=== PATIENT | male | born 1970 | race Caucasian/White ===

== ENCOUNTER 2023-12-06 00:57 | Outpatient (CLI) | payer BC, SELFPAY ==
--- OUTSIDE RECORDS SUMMARY | 2023-12-06 00:59 | XMS_ITS | Encounter Summary ---
[place] [address] Care Team Providers Care Producer Name Role Phone Mai Niec MD Primary Care Provider +1- [phone] Encounter Details Date Type Department Care Team ([facility] st Contact Info) Description 08/28/2012 9:00 AM EDT Office Visit [address] [phone] Mai Nice MD [address] [place] [address] Social History Tobacco Use Types Packs/Day Years Used Date Smoking Tobacco: Never Assessed Sex and Gender Information Value Date Recorded Sex Assigned at Not on file Gender Identity Not on file Sexual Orientation Not on file documented as of this encounter Plan of Treatment Not on file documented as of this encounter Visit Diagnoses Not on filedocumented in this encounter Care Teams Producer Relationship Specialty Start Date End Date Mai Nice MD [address] [place] [address] PCP - General 04/11/10 10/22/13 documented as of this encounter
--- OUTSIDE RECORDS SUMMARY | 2023-12-06 00:59 | XMS_ITS | Encounter Summary ---
[place] [address] Care Team Providers Care Operator Command Support Systems Name Role Phone Mai Nice MD Primary Care Provider +1- [phone] Encounter Details Date Type Department Care Team ([facility] st Contact Info) Description 08/06/2011 7:30 AM EDT Office Visit [address] [address] Mai Nice MD [address] [place] [address] Social History Tobacco Use Types Packs/Day Years Used Date Smoking Tobacco: Never Assessed Sex and Gender Information Value Date Recorded Sex Assigned at Not on file Gender Identity Not on file Sexual Orientation Not on file documented as of this encounter Plan of Treatment Not on file documented as of this encounter Visit Diagnoses Not on filedocumented in this encounter Care Teams Operator Command Support Systems Relationship Specialty Start Date End Date Mai Nice MD [address] [place] [address] PCP - General 04/11/10 10/22/13 documented as of this encounter
--- OUTSIDE RECORDS SUMMARY | 2023-12-06 00:59 | XMS_ITS | Encounter Summary ---
[place] [address] Care Team Providers Care Cleat Layer Name Role Phone Geovanna Mendoza MD Primary Care Provider +1- [phone] Reason for Referral * Consultation (Routine) - Closed Specialty Diagnoses / Procedures Referred By Alex hugo Referred To Contact Diagnoses Geovanna Espitia MD [address] [place] [address] [facility] [address] [place] [address] Referral ID Status Reason Start Date Expiration Date Visits Requested Visits Authorized [id number] Closed Continuity of Care HIM information not needed 5 08/28/2015 1 1 * Consultation (Routine) - Closed Specialty Diagnoses / Procedures Referred By Alex hugo Referred To Contact Nutrition Diagnoses Geovanna Espitia MD [address] [place] [address] [address] Referral ID Status Reason Start Date Expiration Date V isits Requested Visits Authorized [id number] Closed Continuity of Care 02/22/2015 02/22/2016 1 1 Reason for Visit * Reason Onset Date Comments Results 02/18/2015 Encounter Details Date Type Department Care Team (Late st Contact Info) Description 02/18/2015 Refill Primary Care at [facility] [address] [place] [address] Geovanna Mendoza MD [address] [place] [address] Acquired hypothyroidism; Erectile dysfunction, unspecified erectile dysfunction type; Hypothyroidism, unspecified hypothyroidism type; Prediabetes Social History Tobacco Use Types Packs/Day Years Used Date Smoking Tobacco: Never Assessed Sex and Gender Information Value Date Recorded Sex Assigned at Not on file Gender Identity Not on file Sexual Orientation Not on file documented as of this encounter Miscellaneous Notes * Telephone Encounter - Miryam Shannon LPN - 03/01/2015 11:20 AM EDT Spoke with pt. Pt is aware of lab result (a1c) and recommendation below. Pt agrees to referral. Referral entered. 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 Also notify pt that his recent A1c is 5.6 - suggestive of prediabetes.Recommend Document Clerk consult. * Telephone Encounter - Miranda Yeager CMA - 02/21/2015 3:09 PM EDT Called pt. Let him know of the levothyroxine change. Pt agrees with plan Updated medlist. Please send new rx * Telephone Encounter - Geovanna Warren MD - 02/21/2015 9:01 AM EDT Please call pt and notify his recent TSH was elevated. I have increased dose of Synthroid from 25 mcg to 50 mcg. Please also request pt to be compliant with medication. If he missed dose, to resume as soon as possible. Repeat TSH in 3 mths. * Telephone Encounter - Miranda Yeager CMA - 02/18/2015 8:58 AM EDT Last Prescription Fill Date: Number Dispensed and Refills: Last Related Office Visit: 11/08/14 Next Scheduled Appointment:none Lab Results Component Value Date HGB 16.3 11/15/2014 HCT 46.1 11/15/2014 CHLPL 164 11/15/2014 TRIG 61 11/15/2014 HDL 58 11/15/2014 LDLCHOL 94 11/15/2014 ALT 30 11/15/2014 AST 22 11/15/2014 NA 142 11/15/2014 K 4.2 11/15/2014 CL 104 11/15/2014 CREATININE 0.93 11/15/2014 TSH 5.98* 11/15/2014 HA1C 5.6* 08/28/2012 * Telephone Encounter - Miranda Yeager CMA - 02/18/2015 8:53 AM EDT ----- Message from Chasity Davis sent at 02/17/2015 4:59 PM EDT ----- Rx renewal PCP: GEOVANNA WARREN MD (General) Best number to be reached at: [phone] Medication and dose (copy and paste from eD-H): Levothyroxine, Viagra 90 day supply please Send to pharmacy (name and number): [facility] Patient was informed of the 48 - 72 hour policy time for Rx requests documented in this encounter Plan of Treatment Scheduled Referrals Name Type Priority Associated Diagnoses Orde r Schedule Referral to Nutrition Services Outpatient Referral Routine Prediabetes Ordered: 02/22/2015 Referral to Nutrition Services Outpatient Referral Routine Prediabetes Ordered: 03/01/2015 documented as of this encounter Visit Diagnoses Diagnosis Acquired hypothyroidism Unspecified hypothyroidism Erectile dysfunction, unspecified erectile dysfunction type Hypothyroidism, unspecified hypothyroidism type Prediabetes Other abnormal glucose documented in this encounter Care Teams Cleat Layer Relationship Specialty Start Date End Date Geovanna Mendoza MD [address] [place] [address] PCP - General 10/23/13 01/10/17 documented as of this encounter
--- OUTSIDE RECORDS SUMMARY | 2023-12-06 00:59 | XMS_ITS | Encounter Summary ---
Author Organization [facility] [address] Care Team Providers Care Materials Mgmt Tech Name Role Phone Geovanna Mendoza MD Primary Care Provider +1- [phone] Reason for Visit * Reason Onset Date Comments Medication Refill 03/03/2015 Encounter Details Date Type Department Care Team ([facility] st Contact Info) Description 03/03/2015 Refill Primary Care at [address] [address] Geovanna Mendoza MD [address] [place] [address] Acquired hypothyroidism Social History Tobacco Use Types Packs/Day Years Used Date Smoking Tobacco: Never Assessed Sex and Gender Information Value Date Recorded Sex Assigned at Not on file Gender Identity Not on file Sexual Orientation Not on file documented as of this encounter Miscellaneous Notes * Telephone Encounter - Kristin Langston CMA - 03/04/2015 10:01 AM EDT Last Prescription Fill Date: 01/25/15 (to Jessi Roblero) This request looks like its for mail away Number Dispensed and Refills: 16/10 Last Related Office Visit: 11/08/14 Next Scheduled Appointment: recall 10/2015 Lab Results Component Value Date HGB 16.3 11/15/2014 HCT 46.1 11/15/2014 CHLPL 164 11/15/2014 TRIG 61 11/15/2014 HDL 58 11/15/2014 LDLCHOL 94 11/15/2014 ALT 30 11/15/2014 AST 22 11/15/2014 NA 142 11/15/2014 K 4.2 11/15/2014 CL 104 11/15/2014 CREATININE 0.93 11/15/2014 TSH 5.98* 11/15/2014 HA1C 5.6* 08/28/2012 documented in this encounter Plan of Treatment Not on file documented as of this encounter Visit Diagnoses Diagnosis Acquired hypothyroidism Unspecified hypothyroidism documented in this encounter Care Teams Materials Mgmt Tech Relationship Specialty Start Date End Date Geovanna Mendoza MD [address] [place] [address] PCP - General 10/23/13 01/10/17 documented as of this encounter
--- OUTSIDE RECORDS SUMMARY | 2023-12-06 00:59 | XMS_ITS | Encounter Summary ---
[place] [address] Care Team Providers Care Certified Phlebotomist Name Role Phone Geovanna Mendoza MD Primary Care Provider +1- [phone] Encounter Details Date Type Department Care Team (Latest Contact Info) Description 11/15/2014 8:00 AM EDT Laboratory Appointment Lab at [address] [address] Geovanna Mendoza MD [address] [place] [address] Discharge Disposition: Home Social History Tobacco Use Types Packs/Day Years Used Date Smoking Tobacco: Never Assessed Sex and Gender Information Value Date Recorded Sex Assigned at Not on file Gender Identity Not on file Sexual Orientation Not on file documented as of this encounter Plan of Treatment Not on file documented as of this encounter Procedures Procedure Name Priority Date/Time Associated Diagnosis Comments PSA SCREEN Routine 11/15/2014 10:53 AM EDT HEMOGRAM Routine 11/15/2014 10:53 AM EDT DIFFERENTIAL, AUTOMATED Routine 11/15/2014 10:53 AM EDT VITAMIN D, 25-HYDROXY Routine 11/15/2014 10:53 AM EDT TSH Routine 11/15/2014 10:53 AM EDT LIPID PANEL (REFLEX DIRECT LDL) Routine 11/15/2014 10:53 AM EDT COMPREHENSIVE METABOLIC PANEL (NON-FASTING) Routine 11/15/2014 10:53 AM EDT documented in this encounter Results * VIT D Total Evaluation (11/15/2014 10:53 AM EDT) Pathologist [facility] 25-OH Vit D Total 36 30 - 100 ng/mL [facility] Comment: Deficient <10 ng/mL Insufficient 10 to 29 ng/mL Sufficient 30 to 100 ng/mL Potential Intoxication >100 ng/mL According to the US National Osteoporosis Foundation, Vitamin D concentrations >30 ng/mL are sufficient to protect bone health. ??The National Kidney Foundation has similarly stated that patients with Vitamin D concentrations <30ng/mL should be considered to be insufficient or deficient. http://Revivn/Authentic8natlkidneyfoundation http://Revivn/Authentic8VitD [employer] Vitamin D Immunoassay detects both 25-OH Vitamin D2 and 25-OH Vitamin D3, but only a total Vitamin D concentration is reported. Blood specimen (specimen) Venous Draw / Unknown 11/15/2014 10:53 AM EDT 11/15/2014 7:02 PM EDT Narrative Resulting Agency Comment Spec In Lab Geovanna Mendoza MD CHEMISTRY ORDERABL ES Performing Organization Address [facility] Co de Phone Number [facility] * (ABNORMAL) TSH (11/15/2014 10:53 AM EDT) [facility] TSH 5.98(H) 0.27 - 4.20 mcIU/mL [facility] Blood specimen (specimen) Venous Draw / Unknown 11/15/2014 10:53 AM EDT 11/15/2014 7:00 PM EDT Narrative Resulting Agency Comment Spec In Lab Geovanna Mendoza MD CHEMISTRY ORDERABL ES Performing Organization Address [facility]/ZIP Co de Phone Number [facility] * PSA Screen (11/15/2014 10:53 AM EDT) [facility] PSA Total 0.90 0.00 - 4.00 ng/mL [facility] Blood specimen (specimen) Venous Draw / Unknown 11/15/2014 10:53 AM EDT 11/15/2014 7:00 PM EDT Narrative Resulting Agency Comment Spec In Lab Geovanna Mendoza MD CHEMISTRY ORDERABL ES [facility] * Lipid panel (fasting) (11/15/2014 10:53 AM EDT) Chol, Total 164 <=199 mg/dL [facility] Comment: Recommendations of the NCEP Adult Treatment Panel for the following risk cutoff thresholds for the [place] population: Desirable: <200 mg/dL Borderline High: 200-239 mg/dL High: > or = 240 mg/dL Triglycerides 61 <=149 mg/dL [facility] Comment: Reference Range: Normal triglycerides: ??<150 mg/dL Borderline high: ??150-199 mg/dL High: ??200-499 mg/dL Very high: ??>dv=985 mg/dL JAVED 2001; 285(19):0186-1240 HDL 58 >=40 mg/dL [facility] Comment: Reference range: ??Low HDL: ?? < 40 mg/dL ??Normal: ?40-60 mg/dL ??Desirable: > 60 mg/dL JAVED 2001; 285(19):5832-8938 LDL Cholesterol 94 <=99 mg/dL [facility] Comment: Reference range: ?? Optimal: ?<100 mg/dL ?? Near Optimal/Above Optimal: ?? 100-129 mg/dL ?? Borderline high: ?130-159 mg/dL ?? High: ? 160-189 mg/dL ?? Very high: ?>gs=363 mg/dL JAVED 2001: 285(19):8594-5948 Chol/HDL Ratio 2.8 ratio [facility] R [facility] Comment: A Cholesterol to HDL ratio below 4:1 is desirable. ??Studies suggest that increased CAD risk occurs at ratios above 5 for females and above 6 for men. ? [place] Heart Association ??(http://www.americanheart.org) ? Jenny Int Med, 1994; 121:641 ? AM J Med, 1998; 105(1A):48S Blood specimen (specimen) Venous Draw / Unknown 11/15/2014 10:53 AM EDT 11/15/2014 7:00 PM EDT Narrative Resulting Agency Comment Spec In Lab Geovanna Mendoza MD CHEMISTRY ORDERABL ES [facility] * (ABNORMAL) Comprehensive metabolic panel (non-fasting) (11/15/2014 10:53 AM EDT) Glucose Lvl 90 65 - 199 mg/dL [facility] Comment:Diabetes: >=200 mg/d L plus symptoms BUN 12 10 - 20 mg/dL [facility] Creatinine 0.93 0.80 - 1.50 mg/dL [facility] Comment: Please note that the pediatric reference intervals supplied above were not validated at [facility]. Results from pediatric patients should be interpreted in conjunction to the patient's age, height and muscle mass. Sodium 142 135 - 145 mmol/L [facility] Potassium 4.2 3.5 - 5.0 mmol/L [facility] Comment: Please note: ??Patients with WBC >100,000 may have falsely elevated Potassium levels. ??For accurate Potassium quantification in these patients send serum separator tube (gold top) for subsequent determinations. ??Contact the Clinical Chemistry Laboratory if there are any questions. Chloride 104 98 - 107 mmol/L [facility] CO2 22 22 - 31 mmol/L [facility] Anion Gap 16(H) 5 - 15 mmol/L [facility] Calcium 9.6 8.5 - 10.5 mg/dL [facility] Total Protein 7.5 6.1 - 8.0 gm/dL [facility] Albumin 4.3 3.2 - 5.2 gm/dL [facility] AST 22 0 - 39 unit/L [facility] ALT 30 0 - 55 unit/L [facility] Alk Phos 65 40 - 120 unit/L [facility] Total Bilirubin 0.4 0.2 - 1.3 mg/dL [facility] Bili, Direct 0.1 0.0 - 0.3 mg/dL [facility] Estimated GFR >60 >=60 [facility] Comment: This estimated GFR (eGFR) value was calculated using the MDRD equation which has been validated on patients between the ages of 18 and 70. The MDRD should not be used to assess kidney function in patients < 18 years of age or in patients with extremes of body mass, or in patients with acute kidney failure. This value should be multiplied by 1.2 for patients. For further information please copy and paste the following links into your internet browser. http://Revivn/DHnkdep http://Revivn/DHMCnkf Blood specimen (specimen) Venous Draw / Unknown 11/15/2014 10:53 AM EDT 11/15/2014 7:00 PM EDT Narrative Resulting Agency Comment Spec In Lab Geoavnna Mendoza MD CHEMISTRY ORDERABL ES [facility] * Differential, Automated (11/15/2014 10:53 AM EDT) Neutrophils % 53.8 % [facility] Neutr Abs (ANC) 3.50 1.50 - 6.30 x10(3)/mcL [facility] Lymphocytes % 33.2 % [facility] Lymphocytes Abs 2.2 1.0 - 3.6 x10(3)/mcL [facility] Monocytes % 9.2 % [facility] Monocyte Abs 0.6 0.2 - 1.0 x10(3)/mcL [facility] Eosinophils % 2.5 % [facility] Eosinophils Abs 0.2 0.0 - 0.5 x10(3)/mcL [facility] Basophils % 0.8 % [facility] Basophils Abs 0.0 0.0 - 0.2 x10(3)/mcL [facility] Immature Gran % 0.50 % [facility] Comment: Immature granulocytes(IG's)percentage and absolute count will include metamyelocytes, myelocytes, and promyelocytes. Blood smears from CBCs yielding IG's will be scanned manually for concordance. If this scan disagrees with the automated IG or if promyelocytes are noted, a manual differential will be performed. Ophelia Gran Abs 0.03 0.00 - 0.05 x10(3)/mcL [facility] Blood specimen (specimen) Venous Draw / Unknown 11/15/2014 10:53 AM EDT 11/15/2014 1:11 PM EDT Narrative Resulting Agency Comment Spec In Lab Geovanna Mendoza MD HEMATOLOGY ORDERAB LES [facility] * (ABNORMAL) Hemogram (11/15/2014 10:53 AM EDT) WBC 6.5 4.0 - 10.0 x10(3)/mcL [facility] RBC 5.15 4.63 - 6.08 x10(6)/mcL [facility] Hemoglobin 16.3 13.7 - 17.5 gm/dL [facility] Hematocrit 46.1 40.0 - 51.0 % [facility] MCV 89.5 79.0 - 92.0 fL [facility] MCH 31.7 25.6 - 32.2 pg [facility] MCHC 35.4 32.0 - 36.5 gm/dL [facility] Platelets 175 145 - 370 x10(3)/mcL [facility] RDWSD 43.2 35.0 - 46.0 fL [facility] RDWCV 13.3 10.9 - 14.4 % [facility] MPV 12.3(H) 9.0 - 12.0 fL [facility] Blood specimen (specimen) Venous Draw / Unknown 11/15/2014 10:53 AM EDT 11/15/2014 1:11 PM EDT Narrative Resulting Agency Comment Spec In Lab Geovanna Mendoza MD HEMATOLOGY ORDERAB LES Performing Organization Address City/State/[facility] Co de Phone Number [facility] documented in this encounter Visit Diagnoses Not on filedocumented in this encounter Care Teams Certified Phlebotomist Relationship Specialty Start Date End Date Geovanna Mendoza MD [address] [place] [address] PCP - General 10/23/13 01/10/17 documented as of this encounter
--- OUTSIDE RECORDS SUMMARY | 2023-12-06 00:59 | XMS_ITS | Encounter Summary ---
[place] [address] Care Team Providers Care Cosmetics Machine Operator Name Role Phone Mai Nice MD Primary Care Provider +1- [phone] Encounter Details Date Type Department Care Team ([facility] st Contact Info) Description 10/24/2012 9:30 AM EDT Office Visit [address] [address] Mai Nice MD [address] [place] [address] Social History Tobacco Use Types Packs/Day Years Used Date Smoking Tobacco: Never Assessed Sex and Gender Information Value Date Recorded Sex Assigned at Not on file Gender Identity Not on file Sexual Orientation Not on file documented as of this encounter Plan of Treatment Not on file documented as of this encounter Visit Diagnoses Not on filedocumented in this encounter Care Teams Cosmetics Machine Operator Relationship Specialty Start Date End Date Mai Nice MD [address] [place] [address] PCP - General 04/11/10 10/22/13 documented as of this encounter
--- OUTSIDE RECORDS SUMMARY | 2023-12-06 00:59 | XMS_ITS | Encounter Summary ---
Author Organization [facility] [address] Care Team Providers Care Arborist Representative Name Role Phone Geovanna Mendoza MD Primary Care Provider +1- [phone] Encounter Details Date Type Department Care Team ([facility] st Contact Info) Description 06/15/2015 Abstract [facility] [employer] [address] [place] [phone] Provider, His Rehan MD None Social History Tobacco Use Types Packs/Day Years Used Date Smoking Tobacco: Never Assessed Sex and Gender Information Value Date Recorded Sex Assigned at Not on file Gender Identity Not on file Sexual Orientation Not on file documented as of this encounter Last Filed Vital Signs Vital Sign Reading Time Taken Comments Blood Pressure 110/74 11/08/2014 2:27 PM EDT Pulse - - Temperature - - Respiratory Rate - - Oxygen Saturation - - Inhaled Oxygen Concentration - - Weight 143.8 kg (317 lb) 11/08/2014 2:27 PM EDT Height 179.1 cm (5' 10.5) 11/08/2014 2:27 PM ED T Body Mass Index 44.84 11/08/2014 2:27 PM EDT documented in this encounter Plan of Treatment Not on file documented as of this encounter Visit Diagnoses Not on filedocumented in this encounter Care Teams Arborist Representative Relationship Specialty Start Date End Date Geovanna Mendoza MD [address] [place] [address] PCP - General 10/23/13 01/10/17 documented as of this encounter
--- OUTSIDE RECORDS SUMMARY | 2023-12-06 00:59 | XMS_ITS | Encounter Summary ---
[place] [address] Care Team Providers Care Workcell Operator Name Role Phone Unavailable Primary Care Provider Unavailabl e Reason for Referral * Consultation (Routine) - Authorized Specialty Diagnoses / Procedures Referred By Alex hugo Referred To Contact Cardiology Diagnoses Aneurysm of ascending aorta without rupture Congenital insufficiency of aortic valve Aneurysm of ascending aorta without rupture Clarita Ryder APRN [address] [place] [address] [facility] [address] [place] [phone] Referral ID Status Reason Start Date Expiration Date Visits Requested Visits Authorized [id number] Authorized Consult, Test & Treat PCP Updated and/or Approved 11/18/2023 11/17/2024 6 6 Encounter Details Date Type Department Care Team (Latest Contact Info) Description 11/18/2023 Transcribe Orders eDH Incoming Referrals [phone] Clarita Ryder APRN [address] [place], [place] [id number] Congenital insufficiency of aortic valve; Aneurysm of ascending aorta without rupture Social History Tobacco Use Types Packs/Day Years Used Date Smoking Tobacco: Never Assessed Sex and Gender Information Value Date Recorded Sex Assigned at Not on file Gender Identity Not on file Sexual Orientation Not on file documented as of this encounter Plan of Treatment Scheduled Referrals Name Type Priority Associated Diagnoses Orde r Schedule Referral to Cardiology Outpatient Referral Routine Congenital insufficiency of aortic valve Aneurysm Of Ascending Aorta Without Rupture Ordered: 11/18/2023 documented as of this encounter Visit Diagnoses Diagnosis Congenital insufficiency of aortic valve Aneurysm of ascending aorta without rupture documented in this encounter
--- OUTSIDE RECORDS SUMMARY | 2023-12-06 00:59 | XMS_ITS | Encounter Summary ---
[place] [address] Care Team Providers Care Sugar Cane Planter Machine Operator Name Role Phone Geovanna Mendoza MD Primary Care Provider +1- [phone] Encounter Details Date Type Department Care Team ([facility] st Contact Info) Description 10/23/2013 4:00 PM EDT Office Visit [address] [address] Mai Nice MD [address] [place] [address] Social History Tobacco Use Types Packs/Day Years Used Date Smoking Tobacco: Never Assessed Sex and Gender Information Value Date Recorded Sex Assigned at Not on file Gender Identity Not on file Sexual Orientation Not on file documented as of this encounter Plan of Treatment Not on file documented as of this encounter Visit Diagnoses Not on filedocumented in this encounter Care Teams Sugar Cane Planter Machine Operator Relationship Specialty Start Date End Date Geovanna Mendoza MD [address] [place] [address] PCP - General 10/23/13 01/10/17 documented as of this encounter
--- OUTSIDE RECORDS SUMMARY | 2023-12-06 00:59 | XMS_ITS | Clinical Summary ---
Author Organization [facility] Address [facility] [place] [address] Care Team Providers Care Red Leader Name Role Phone Unavailable Primary Care Provider Unavailabl e Medications Medication Sig Dispensed Refills Start Date End Date Status sildenafil (VIAGRA) 50 mg TabletIndications:Ere ctile dysfunction, unspecified erectile dysfunction type Take 1 tablet by mouth as needed for Erectile Dysfunction. Prior to intercourse 10 tablet 1 02/28/2015 Active levothyroxine (SYNTHROID) 50 mcg TabletIndications:Acq uired hypothyroidism Take 1 tablet by mouth daily. 90 tablet 0 05/25/2015 Active Active Problems Problem Noted Date Diagnosed Date Congenital insufficiency of aortic valve 015 Morbid obesity 02/18/2015 Male erectile disorder 10/23/2013 Hypothyroidism 08/28/2012 Family history of malignant neoplasm of prostate 09/22/2007 Benign essential HTN 03/19/2007 Encounters Date Type Department Care Team Description 11/18/2023 Transcribe Orders eD Incoming Referrals [phone] Clarita Ryder, MATERIALS CLERK Congenital insufficiency of aortic valve; Aneurysm of ascending aorta without rupture from Last 3 Months Immunizations Name Administration Dates Next Due Influenza Unspecified Formulation 03/10/2007 Td Adult, Unspecified Formulation 03/10/2007 Social History Tobacco Use Types Packs/Day Years Used Date Smoking Tobacco: Never Assessed Sex and Gender Information Value Date Recorded Sex Assigned at Not on file Gender Identity Not on file Sexual Orientation Not on file Last Filed Vital Signs Vital Sign Reading Time Taken Comments Blood Pressure 110/74 11/08/2014 2:27 PM EDT Pulse - - Temperature - - Respiratory Rate - - Oxygen Saturation - - Inhaled Oxygen Concentration - - Weight 143.8 kg (317 lb) 11/08/2014 2:27 PM EDT Height 179.1 cm (5' 10.5) 11/08/2014 2:27 PM ED T Body Mass Index 44.84 11/08/2014 2:27 PM EDT Plan of Treatment Health Maintenance Due Date Last Done Comments CT Colonography 1968 Colonoscopy 1968 Colorectal Cancer Screening 1968 FIT DNA 1968 FIT 1968 Sigmoidoscopy (10 year) with FIT yearly 1968 Sigmoidoscopy 1968 HIV screen 1986 Hepatitis C Screening 1986 Hepatitis B vaccine (0-59 yrs) (1) 1987 Tdap adult 1987 Tetanus vaccine 03/10/2017 03/10/2007 Zoster vaccine (1 of 2) 2018 Lipid Screening 11/16/2019 11/15/2014 Covid-19 Vaccine (1 - 2022- season) 2023 Advance Directive 2023 Influenza (Flu) vaccine (1 o f 1 - Influenza standard series) 01/19/2024 03/10/2007 Procedures Procedure Name Priority Date/Time Associated Diagnosis Comments LIPID PANEL (REFLEX DIRECT LDL) Routine 11/15/2014 10:53 AM EDT from Last 3 Months or Most Recently Relevant to Health Maintenance Results * Lipid panel (fasting) (11/15/2014 10:53 AM EDT) Chol, Total 164 <=199 mg/dL [facility] Comment: Recommendations of the NCEP Adult Treatment Panel for the following risk cutoff thresholds for the [place] population: Desirable: <200 mg/dL Borderline High: 200-239 mg/dL High: > or = 240 mg/dL Triglycerides 61 <=149 mg/dL [facility] Comment: Reference Range: Normal triglycerides: ??<150 mg/dL Borderline high: ??150-199 mg/dL High: ??200-499 mg/dL Very high: ??>kr=542 mg/dL JAVED 2001; 285(19):6442-4725 HDL 58 >=40 mg/dL [facility] Comment: Reference range: ??Low HDL: ?? < 40 mg/dL ??Normal: ?40-60 mg/dL ??Desirable: > 60 mg/dL JAVED 2001; 285(19):6395-6977 LDL Cholesterol 94 <=99 mg/dL [facility] Comment: Reference range: ?? Optimal: ?<100 mg/dL ?? Near Optimal/Above Optimal: ?? 100-129 mg/dL ?? Borderline high: ?130-159 mg/dL ?? High: ? 160-189 mg/dL ?? Very high: ?>uk=517 mg/dL JAVED 2001: 285(19):6842-3506 Chol/HDL Ratio 2.8 ratio [facility] Comment: A Cholesterol to HDL ratio below 4:1 is desirable. ??Studies suggest that increased CAD risk occurs at ratios above 5 for females and above 6 for men. ? [place] [employer] Association ??(http://www.americanheart.org) ? Jenny Int Med, 1994; 121:641 ? AM J Med, 1998; 105(1A):48S Blood specimen (specimen) Venous Draw / Unknown 11/15/2014 10:53 AM EDT 11/15/2014 7:00 PM EDT Narrative Resulting Agency Comment Spec In Lab Geovanna Mendoza MD CHEMISTRY ORDERABL ES SUE [facility]GEN[facility] from Last 3 Months or Most Recently Relevant to Health Maintenance
--- OUTSIDE RECORDS SUMMARY | 2023-12-06 00:59 | XMS_ITS | Encounter Summary ---
[place] [address] Care Team Providers Care Corporate Bond Trader Name Role Phone Geovanna Mendoza MD Primary Care Provider +1- [phone] Encounter Details Date Type Department Care Team ([facility] st Contact Info) Description 04/27/2014 8:00 AM EST Office Visit [facility] [address] [place] [address] Geovanna Mendoza MD [address] [place] [address] Social History Tobacco Use Types Packs/Day Years Used Date Smoking Tobacco: Never Assessed Sex and Gender Information Value Date Recorded Sex Assigned at Not on file Gender Identity Not on file Sexual Orientation Not on file documented as of this encounter Plan of Treatment Not on file documented as of this encounter Visit Diagnoses Not on filedocumented in this encounter Care Teams Corporate Bond Trader Relationship Specialty Start Date End Date Geovanna Mendoza MD [address] [place] [address] PCP - General 10/23/13 01/10/17 documented as of this encounter
--- OUTSIDE RECORDS SUMMARY | 2023-12-06 00:59 | XMS_ITS | Encounter Summary ---
Author Organization [facility] [address] Care Team Providers Care Eyelet Riveter Name Role Phone Geovanna Mendoza MD Primary Care Provider +1- [phone] Reason for Visit * Reason Comments Medication Refill Encounter Details Date Type Department Care Team ([facility] st Contact Info) Description 05/18/2015 Refill Primary Care at [address] [address] Geovanna Mendoza MD [address] [place] [address] Social History Tobacco Use Types Packs/Day Years Used Date Smoking Tobacco: Never Assessed Sex and Gender Information Value Date Recorded Sex Assigned at Not on file Gender Identity Not on file Sexual Orientation Not on file documented as of this encounter Miscellaneous Notes * Telephone Encounter - Ivelisse Chase RN - 05/18/2015 11:58 AM EST Last Prescription Fill Date: 03/04/15 Number Dispensed and Refills: 30*3 Last Related Office Visit: 11/08/14 Next Scheduled Appointment: na Lab Results Component Value Date HGB 16.3 [...] on filedocumented in this encounter Care Teams Eyelet Riveter Relationship Specialty Start Date End Date Geovanna Mendoza MD [address] [place] [address] PCP - General 10/23/13 01/10/17 documented as of this encounter
--- OUTSIDE RECORDS SUMMARY | 2023-12-06 00:59 | XMS_ITS | Encounter Summary ---
Author Organization [facility] Address [facility] [address] Care Team Providers Care Wild Life Photographer Name Role Phone Geovanna Mendoza MD Primary Care Provider +1- [phone] Reason for Visit * Reason Comments Other Encounter Details Date Type Department Care Team ([facility] st Contact Info) Description 05/25/2015 Refill Primary Care at [address] [address] Geovanna Mendoza MD [address] [place] [address] Acquired hypothyroidism Social History Tobacco Use Types Packs/Day Years Used Date Smoking Tobacco: Never Assessed Sex and Gender Information Value Date Recorded Sex Assigned at Not on file Gender Identity Not on file Sexual Orientation Not on file documented as of this encounter Miscellaneous Notes * Telephone Encounter - Miranda Yeager CMA - 05/25/2015 8:47 AM EST This was already refilled on 05/18/15. But needs to go to mail order. Asking for 90 day supply * Telephone Encounter - Miranda Yeager CMA - 05/25/2015 8:46 AM EST ----- Message from Jeana Masters RN sent at 05/24/2015 5:05 PM EST ----- ----- Message ----- From: Марина Manzo Sent: 05/24/2015 5:00 PM To: Con Primary Care After Hours RX ISSUE GEOVANNA PINTO MD Name of medication: SYNTHROID 50 mcg Tablet [facility] [place] [place] - [address] TO REGISTERED [facility] Name of caller: Francesca Phone and Fax number: Message: reference number - [id number], they are just making sure that this was suppose to be sent over twice, also if it was the 50 mcg they just want the permission to supply 90 days instead of 30 documented in this encounter Plan of Treatment Not on file documented as of this encounter Visit Diagnoses Diagnosis Acquired hypothyroidism Unspecified hypothyroidism documented in this encounter Care Teams Wild Life Photographer Relationship Specialty Start Date End Date Geovanna Mendoza MD [address] [place] [address] PCP - General 10/23/13 01/10/17 documented as of this encounter
--- OUTSIDE RECORDS SUMMARY | 2023-12-06 00:59 | XMS_ITS | Encounter Summary ---
[place] [address] Care Team Providers Care Transit Driver Name Role Phone Mai Nice MD Primary Care Provider +1- [phone] Encounter Details Date Type Department Care Team (Late st Contact Info) Description 06/01/2013 2:30 PM EST Office Visit [facility] [address] [place] [phone] Mai Nice MD [address] [place] [address] Social History Tobacco Use Types Packs/Day Years Used Date Smoking Tobacco: Never Assessed Sex and Gender Information Value Date Recorded Sex Assigned at Not on file Gender Identity Not on file Sexual Orientation Not on file documented as of this encounter Plan of Treatment Not on file documented as of this encounter Visit Diagnoses Not on filedocumented in this encounter Care Teams Transit Driver Relationship Specialty Start Date End Date Mai Nice MD [address] [place] [address] PCP - General 04/11/10 10/22/13 documented as of this encounter
--- OUTSIDE RECORDS SUMMARY | 2023-12-06 00:59 | XMS_ITS | Encounter Summary ---
[place] [address] Care Team Providers Care Cattle Manager Name Role Phone Mai Nice MD Primary Care Provider +1- [phone] Encounter Details Date Type Department Care Team ([facility] st Contact Info) Description 09/05/2011 7:30 AM EDT Office Visit [address] [address] Mai Nice MD [address] [place] [address] Social History Tobacco Use Types Packs/Day Years Used Date Smoking Tobacco: Never Assessed Sex and Gender Information Value Date Recorded Sex Assigned at Not on file Gender Identity Not on file Sexual Orientation Not on file documented as of this encounter Plan of Treatment Not on file documented as of this encounter Visit Diagnoses Not on filedocumented in this encounter Care Teams Cattle Manager Relationship Specialty Start Date End Date Mai Nice MD [address] [place] [address] PCP - General 04/11/10 10/22/13 documented as of this encounter
--- OUTSIDE RECORDS SUMMARY | 2023-12-06 00:59 | XMS_ITS | Encounter Summary ---
[place] [address] Care Team Providers Care System Configuration Specialist Name Role Phone Mai Nice MD Primary Care Provider +1- [phone] Encounter Details Date Type Department Care Team ([facility] st Contact Info) Description 04/24/2013 9:00 AM EST Office Visit [facility] [address] [place] [address] Mai Nice MD [address] [place] [address] Social History Tobacco Use Types Packs/Day Years Used Date Smoking Tobacco: Never Assessed Sex and Gender Information Value Date Recorded Sex Assigned at Not on file Gender Identity Not on file Sexual Orientation Not on file documented as of this encounter Plan of Treatment Not on file documented as of this encounter Visit Diagnoses Not on filedocumented in this encounter Care Teams System Configuration Specialist Relationship Specialty Start Date End Date Mai Nice MD [address] [place] [address] PCP - General 04/11/10 10/22/13 documented as of this encounter
--- OUTSIDE RECORDS SUMMARY | 2023-12-06 00:59 | XMS_ITS | Encounter Summary ---
[place] [address] Care Team Providers Care Wine Blender Name Role Phone Geovanna Mendoza MD Primary Care Provider +1- [phone] Encounter Details Date Type Department Care Team ([facility] st Contact Info) Description 11/08/2014 3:30 PM EDT Office Visit Primary Care at [address] [address] Geovanna Mendoza MD [address] [place] [address] Social History Tobacco Use Types Packs/Day Years Used Date Smoking Tobacco: Never Assessed Sex and Gender Information Value Date Recorded Sex Assigned at Not on file Gender Identity Not on file Sexual Orientation Not on file documented as of this encounter Plan of Treatment Not on file documented as of this encounter Visit Diagnoses Not on filedocumented in this encounter Care Teams Wine Blender Relationship Specialty Start Date End Date Geovanna Mendoza MD [address] [place] [address] PCP - General 10/23/13 01/10/17 documented as of this encounter
--- OUTSIDE RECORDS SUMMARY | 2023-12-06 00:59 | XMS_ITS | Encounter Summary ---
Author Organization [facility] [address] Care Team Providers Care Bolt Threader Name Role Phone Geovanna Mendoza MD Primary Care Provider +1- [phone] Reason for Visit * Reason Onset Date Comments Medication Refill 03/02/2015 Encounter Details Date Type Department Care Team ([facility] st Contact Info) Description 03/02/2015 Refill Primary Care at [address] [address] Geovanna Mendoza MD [address] [place] [address] Acquired hypothyroidism Social History Tobacco Use Types [...] hypothyroidism documented in this encounter Care Teams Bolt Threader Relationship Specialty Start Date End Date Geovanna Mendoza MD [address] [place] [address] PCP - General 10/23/13 01/10/17 documented as of this encounter
--- OUTSIDE RECORDS SUMMARY | 2023-12-06 00:59 | XMS_ITS | Encounter Summary ---
[place] [address] Care Team Providers Care President Mortgage Company Name Role Phone Geovanna Mendoza MD Primary Care Provider [phone]- [phone] Encounter Details Date Type Department Care Team (Late st Contact Info) Description 10/25/2014 Abstract [facility] [employer] Information [employer] [address] [place] [address] Provider, His Rehan MD None Social History Tobacco Use Types Packs/Day Years Used Date Smoking Tobacco: Never Assessed Sex and Gender Information Value Date Recorded Sex Assigned at Not on file Gender Identity Not on file Sexual Orientation Not on file documented as of this encounter Last Filed Vital Signs Vital Sign Reading Time Taken Comments Blood Pressure 122/80 04/27/2014 2:16 PM EST Pulse - - Temperature - - Respiratory Rate - - Oxygen Saturation - - Inhaled Oxygen Concentration - - Weight 142.9 kg (315 lb) 04/27/2014 2:16 PM EST Height 179.1 cm (5' 10.5) 04/27/2014 2:16 PM ES T Body Mass Index 44.56 04/27/2014 2:16 PM EST documented in this encounter Plan of Treatment Not on file documented as of this encounter Procedures Procedure Name Priority Date/Time Associated Diagnosis Comments EXTERNAL LAB [place]CORD ABSTRACT Routine 08/28/2012 documented in this encounter Results * (ABNORMAL) External Labs for [place] use only (08/28/2012) Hemoglobin A1C 5.6(Clinical Recruiter al Lab) His Rehan Provider POINT OF CARE TE ST ORDERABLES documented in this encounter Visit Diagnoses Not on filedocumented in this encounter Care Teams President Mortgage Company Relationship Specialty Start Date End Date Geovanna Mendoza MD [address] [place] [address] PCP - General 10/23/13 01/10/17 documented as of this encounter
--- OUTSIDE RECORDS SUMMARY | 2023-12-06 01:00 | XMS_ITS | Encounter Summary ---
[place] [address] Care Team Providers Care Globe Tester Name Role Phone Mai Nice MD Primary Care Provider +1- [phone] Encounter Details Date Type Department Care Team (Late st Contact Info) Description 06/27/2011 4:00 PM EST Office Visit [facility] [address] [place] [phone] Mai Nice MD [address] [place] [address] Social History Tobacco Use Types Packs/Day Years Used Date Smoking Tobacco: Never Assessed Sex and Gender Information Value Date Recorded Sex Assigned at Not on file Gender Identity Not on file Sexual Orientation Not on file documented as of this encounter Plan of Treatment Not on file documented as of this encounter Visit Diagnoses Not on filedocumented in this encounter Care Teams Globe Tester Relationship Specialty Start Date End Date Mai Nice MD [address] [place] [address] PCP - General 04/11/10 10/22/13 documented as of this encounter
[2023-12-06 08:55] LABS: Anion Gap 7.1 mmol/L (3-11); BUN 13 mg/dL (7-18); CO2 26.9 mmol/L (21.0-32.0); CREATININE 0.9 mg/dL (0.70-1.30); Calcium 9.1 mg/dL (8.5-10.1); Calculated LDL 103 mg/dL (<100); Chloride 107 mmol/L (98-107); Cholesterol 171 mg/dL (<200); Estimated GFR 100.86 (mL/min/1.73m2); Glucose 110 mg/dL (74-106); HDL Cholesterol 51 mg/dL (40-60); Sodium 141 mmol/L (136-145); TSH (W/Ref FT4) 1.58 uIU/mL (0.36-3.74); Triglyceride 86 mg/dL (<150)
[2023-12-06 09:07] LABS: Hemoglobin A1C 5.4 % (<5.7)
[2023-12-06 20:50] LABS: PSA, Screening 1.4 ng/mL (<=3.5)
== END 2023-12-06 00:58 | disposition home or self-care (01) ==
LOC: LBO 00:58
PROVIDERS: PCP Nurse Practitioner Family; Referring Provider Nurse Practitioner Family; Visit Provider Nurse Practitioner Family
DX: I10 Essential (primary) hypertension (principal); E66.01 Morbid (severe) obesity due to excess calories; Z68.42 Body mass index [BMI] 45.0-49.9, adult; Z00.00 Encounter for general adult medical examination without abnormal findings; E03.9 Hypothyroidism, unspecified; Z87.898 Personal history of other specified conditions
CPT/HCPCS: 36415; 80048; 80061; 84153; 83036; 84443

== ENCOUNTER 2024-06-26 16:11 | Outpatient (CLI) | payer BC, SELFPAY ==
[2024-06-26 16:09] LABS: Anion Gap 6.3 mmol/L (3-11); BUN 11 mg/dL (7-18); CO2 28.7 mmol/L (21.0-32.0); CREATININE 1.2 mg/dL (0.70-1.30); Chloride 103 mmol/L (98-107); Estimated GFR 71.42 (mL/min/1.73m2); Glucose 89 mg/dL (74-106); Potassium 3.8 mmol/L (3.5-5.1); Sodium 138 mmol/L (136-145)
--- OUTSIDE RECORDS SUMMARY | 2024-06-26 16:14 | XMS_ITS | Encounter Summary ---
Author Organization [facility] Address [facility] [place] [address] Care Team Providers Care Cooler Tender Name Role Phone Clarita Ryder APRN Primary Care Provider [phone] Reason for Referral * Consultation (Routine) - Closed Specialty Diagnoses / Procedures Referred By Alex hugo Referred To Contact Dermatology Diagnoses Skin abnormalities Clarita Ryder APRN [address] [place] [address] [facility] [address] [place] [address] Referral ID Status Reason Start Date Expiration Date V isits Requested Visits Authorized [id number] Closed Consult, Test & Treat PCP Updated and/or Approved 12/31/2023 12/30/2024 6 6 Encounter Details Date Type Department Care Team (Late st Contact Info) Description 12/31/2023 Transcribe Orders eDH Incoming Referrals [phone] Clarita Ryder APRN [address] [place], [place] [id number] Skin abnormalities Social History Tobacco Use Types Packs/Day Years Used Date Smoking Tobacco: Never Assessed Sex and Gender Information Value Date Recorded Sex Assigned at Not on file Gender Identity Not on file Sexual Orientation Not on file documented as of this encounter Plan of Treatment Scheduled Referrals Name Type Priority Associated Diagnoses Orde r Schedule Referral to Dermatology Outpatient Referral Routine Skin abnormalities Ordered: 12/31/2023 documented as of this encounter Visit Diagnoses Diagnosis Skin abnormalities Unspecified congenital anomaly of the integument documented in this encounter Care Teams Cooler Tender Relationship Specialty Start Date End Date Clarita Ryder APRN [address] [place] [address] PCP - General Family Medicine 12/19/23 documented as of this encounter
--- OUTSIDE RECORDS SUMMARY | 2024-06-26 16:14 | XMS_ITS | Encounter Summary ---
Author Organization [facility] [address] Care Team Providers Care Guest Room Attendant Name Role Phone Geovanna Mendoza MD Primary Care Provider [phone]- [phone] Reason for Referral * Consultation (Routine) - Closed Specialty Diagnoses / Procedures Referred By Alex hugo Referred To Contact Diagnoses Geovanna Espitia MD [address] [place] [address] [facility] [address] [place] [address] Referral ID Status Reason Start Date Expiration Date Visits Requested Visits Authorized [id number] Closed Continuity of Care HIM information not needed 5 08/28/2015 1 1 * Consultation (Routine) - Closed Specialty Diagnoses / Procedures Referred By Alex hugo Referred To Contact Nutrition Diagnoses Geovanna Espitia MD [address] [place] [address] [address] [address] Referral ID Status Reason Start Date Expiration Date V isits Requested Visits Authorized [id number] Closed Continuity of Care 02/22/2015 02/22/2016 1 1 Reason for Visit * Reason Onset Date Comments Results 02/18/2015 Encounter Details Date Type Department Care Team (Late st Contact Info) Description 02/18/2015 Refill Primary Care at [place] [address] [place] [address] Geovanna Mendoza MD [address] [place] [address] Acquired hypothyroidism; Erectile dysfunction, unspecified erectile dysfunction [...] yesterday ( 02/21 ) - ready for fruit picker machine operator. Also notify pt that his recent A1c is 5.6 - suggestive of prediabetes.Recommend After School Program Teacher consult. * Telephone Encounter - Miranda Yeager [...] (General) Best number to be reached at: [phone] Medication and dose (copy and paste from [...] glucose documented in this encounter Care Teams Guest Room Attendant Relationship Specialty Start Date End Date Geovanna Mendoza MD [address] [place] [address] PCP - General 10/23/13 01/10/17 documented as of this encounter
--- OUTSIDE RECORDS SUMMARY | 2024-06-26 16:14 | XMS_ITS | Encounter Summary ---
Author Organization [facility] [place] [address] Care Team Providers Care Warp Clamper Name Role Phone Clarita Ryder APRN Primary Care Provider [phone] Encounter Details Date Type Department Care Team (Latest Contact Info) Description 02/27/2024 Travel Social History Tobacco Use Types Packs/Day Years Used Date Smoking Tobacco: Never Smokeless Tobacco: Former Chew Sex and Gender Information Value Date Recorded Sex Assigned at Not on file Gender Identity Not on file Sexual Orientation Not on file documented as of this encounter Plan of Treatment Not on file documented as of this encounter Visit Diagnoses Not on filedocumented in this encounter Care Teams Warp Clamper Relationship Specialty Start Date End Date Clarita Ryder APRN [address] [facility] [place] [address] PCP - General Family Medicine 12/19/23 documented as of this encounter
--- OUTSIDE RECORDS SUMMARY | 2024-06-26 16:14 | XMS_ITS | Encounter Summary ---
Author Organization [facility] [address] Care Team Providers Care Manager Trade Marketing Name Role Phone Mai Nice MD Primary Care Provider [phone]- [phone] Encounter Details Date Type Department Care Team ([facility] st Contact Info) Description 08/06/2011 7:30 AM EDT Office Visit [facility] [address] [place] [address] Mai Nice MD [address] [place] [address] Social History Tobacco Use Types Packs/Day Years Used Date Smoking Tobacco: Never Assessed Sex and Gender Information Value Date Recorded Sex Assigned at Not on file Gender Identity Not on file Sexual Orientation Not on file documented as of this encounter Plan of Treatment Not on file documented as of this encounter Visit Diagnoses Not on filedocumented in this encounter Care Teams Manager Trade Marketing Relationship Specialty Start Date End Date Mai Nice MD [address] [place] [address] PCP - General 04/11/10 10/22/13 documented as of this encounter
--- OUTSIDE RECORDS SUMMARY | 2024-06-26 16:14 | XMS_ITS | Encounter Summary ---
Author Organization [facility] [place] [address] Care Team Providers Care Culled Fruit Packer Name Role Phone Mai Nice MD Primary Care Provider [phone]- [phone] Encounter Details Date Type Department Care Team ([facility] st Contact Info) Description 09/05/2011 7:30 AM EDT Office Visit [facility] [address] [place] [address] Mai Nice MD [address] [place] [address] Social History Tobacco Use Types Packs/Day Years Used Date Smoking Tobacco: Never Assessed Sex and Gender Information Value Date Recorded Sex Assigned at Not on file Gender Identity Not on file Sexual Orientation Not on file documented as of this encounter Plan of Treatment Not on file documented as of this encounter Visit Diagnoses Not on filedocumented in this encounter Care Teams Culled Fruit Packer Relationship Specialty Start Date End Date Mai Nice MD [address] [place] [address] PCP - General 04/11/10 10/22/13 documented as of this encounter
--- OUTSIDE RECORDS SUMMARY | 2024-06-26 16:14 | XMS_ITS | Encounter Summary ---
Author Organization [facility] [place] [address] Care Team Providers Care Rent Collector Name Role Phone Mai Nice MD Primary Care Provider [phone]- [phone] Encounter Details Date Type Department Care Team ([facility] st Contact Info) Description 08/28/2012 9:00 AM EDT Office Visit [facility] [address] [place] [address] Mai Nice MD [address] [place] [address] Social History Tobacco Use Types Packs/Day Years Used Date Smoking Tobacco: Never Assessed Sex and Gender Information Value Date Recorded Sex Assigned at Not on file Gender Identity Not on file Sexual Orientation Not on file documented as of this encounter Plan of Treatment Not on file documented as of this encounter Visit Diagnoses Not on filedocumented in this encounter Care Teams Rent Collector Relationship Specialty Start Date End Date Mai Nice MD [address] [place] [address] PCP - General 04/11/10 10/22/13 documented as of this encounter
--- OUTSIDE RECORDS SUMMARY | 2024-06-26 16:14 | XMS_ITS | Encounter Summary ---
Author Organization [facility] [place] [address] Care Team Providers Care Purchasing Expeditor Name Role Phone Unavailable Primary Care Provider Unavailabl e Reason for Referral * Consultation (Routine) - Authorized Specialty Diagnoses / Procedures Referred By Alex hugo Referred To Contact Cardiology Diagnoses Aneurysm of ascending aorta without rupture Congenital insufficiency of aortic valve Aneurysm of ascending aorta without rupture Clarita Ryder APRN [address] [place] [address] [facility] [address] [place] [phone] Referral ID Status Reason Start Date Expiration Date Visits Requested Visits Authorized [id number] Authorized Consult, Test & Treat PCP Updated and/or Approved 11/18/2023 11/17/2024 6 6 Encounter Details Date Type Department Care Team (Latest Contact Info) Description 11/18/2023 Transcribe Orders eDH Incoming Referrals [phone] Clarita Ryder APRN [address] [place], [place] [id number] Congenital insufficiency of aortic valve; Aneurysm of [...]
--- OUTSIDE RECORDS SUMMARY | 2024-06-26 16:14 | XMS_ITS | Encounter Summary ---
Author Organization [facility] [place] [address] Care Team Providers Care Community Outreach Advocate Name Role Phone Mai Nice MD Primary Care Provider [phone]- [phone] Encounter Details Date Type Department Care Team ([facility] st Contact Info) Description 06/01/2013 2:30 PM EST Office Visit [facility] [address] [place] [address] Mai Ncie MD [address] [place] [address] Social History Tobacco Use Types Packs/Day Years Used Date Smoking Tobacco: Never Assessed Sex and Gender Information Value Date Recorded Sex Assigned at Not on file Gender Identity Not on file Sexual Orientation Not on file documented as of this encounter Plan of Treatment Not on file documented as of this encounter Visit Diagnoses Not on filedocumented in this encounter Care Teams Community Outreach Advocate Relationship Specialty Start Date End Date Mai Nice MD [address] [place] [address] PCP - General 04/11/10 10/22/13 documented as of this encounter
--- OUTSIDE RECORDS SUMMARY | 2024-06-26 16:14 | XMS_ITS | Encounter Summary ---
Author Organization [facility] [place] [address] Care Team Providers Care Auto Body Service Mechanic Name Role Phone Geovanna Mendoza MD Primary Care Provider [phone]- [phone] Encounter Details Date Type Department Care Team ([facility] st Contact Info) Description 04/27/2014 8:00 AM EST Office Visit [address] [address] Geovanna Mendoza MD [address] [place] [address] Social History Tobacco Use Types Packs/Day Years Used Date Smoking Tobacco: Never Assessed Sex and Gender Information Value Date Recorded Sex Assigned at Not on file Gender Identity Not on file Sexual Orientation Not on file documented as of this encounter Plan of Treatment Not on file documented as of this encounter Visit Diagnoses Not on filedocumented in this encounter Care Teams Auto Body Service Mechanic Relationship Specialty Start Date End Date Geovanna Mendoza MD [address] [place] [address] PCP - General 10/23/13 01/10/17 documented as of this encounter
--- OUTSIDE RECORDS SUMMARY | 2024-06-26 16:14 | XMS_ITS | Encounter Summary ---
Author Organization [facility] [place] [address] Care Team Providers Care Chef De Froid Name Role Phone Geovanna Mendoza MD Primary Care Provider [phone]- [phone] Encounter Details Date Type Department Care Team ([facility] st Contact Info) Description 10/23/2013 4:00 PM EDT Office Visit [address] [address] Mai Nice MD [address] [place] [address] Social History Tobacco Use Types Packs/Day Years Used Date Smoking Tobacco: Never Assessed Sex and Gender Information Value Date Recorded Sex Assigned at Not on file Gender Identity Not on file Sexual Orientation Not on file documented as of this encounter Plan of Treatment Not on file documented as of this encounter Visit Diagnoses Not on filedocumented in this encounter Care Teams Chef De Froid Relationship Specialty Start Date End Date Geovanna Mendoza MD [address] [place] [address] PCP - General 10/23/13 01/10/17 documented as of this encounter
--- OUTSIDE RECORDS SUMMARY | 2024-06-26 16:14 | XMS_ITS | Encounter Summary ---
Author Organization [place] [address] Care Team Providers Care Paraprofessional Aide Name Role Phone Geovanna Mendoza MD Primary Care Provider [phone]- [phone] Reason for Visit * Reason Onset Date Comments Medication Refill 03/03/2015 Encounter Details Date Type Department Care Team ([facility] st Contact Info) Description 03/03/2015 Refill Primary Care at [address] [address] Geovanna Mendoza MD [address] [place] [address] Acquired hypothyroidism Social History Tobacco Use Types [...] hypothyroidism documented in this encounter Care Teams Paraprofessional Aide Relationship Specialty Start Date End Date Geovanna Mendoza MD [address] [place] [address] PCP - General 10/23/13 01/10/17 documented as of this encounter
--- OUTSIDE RECORDS SUMMARY | 2024-06-26 16:14 | XMS_ITS | Encounter Summary ---
Author Organization [facility] [place] [address] Care Team Providers Care Wire Sawyer Name Role Phone Mai Nice MD Primary Care Provider +1- [phone] Encounter Details Date Type Department Care Team ([facility] st Contact Info) Description 10/24/2012 9:30 AM EDT Office Visit [facility] [address] [place] [address] Mai Nice MD [address] [place] [address] Social History Tobacco Use Types Packs/Day Years Used Date Smoking Tobacco: Never Assessed Sex and Gender Information Value Date Recorded Sex Assigned at Not on file Gender Identity Not on file Sexual Orientation Not on file documented as of this encounter Plan of Treatment Not on file documented as of this encounter Visit Diagnoses Not on filedocumented in this encounter Care Teams Wire Sawyer Relationship Specialty Start Date End Date Mai Nice MD [address] [place] [address] PCP - General 04/11/10 10/22/13 documented as of this encounter
--- OUTSIDE RECORDS SUMMARY | 2024-06-26 16:14 | XMS_ITS | Encounter Summary ---
Author Organization Count Includes [facility] [address] Care Team Providers Care Clinical Pharmacist Name Role Phone Clarita Ryder BIODIESEL PRODUCTION ASSOCIATE Primary Care Provider [phone] Reason for Referral * Diagnostic Test (Routine) - New Request Specialty Diagnoses / Procedures Referred By Contac t Referred To Contact Cardiology Diagnoses Bicuspid aortic valve Ascending aorta dilation Procedures Echocardiogram Transthoracic Mar Montelongo MD [facility] [place] [address] [facility] [place] [address] Referral ID Status Reason Start Date Expiration Date Visits Requested Visits Authorized [id number] New Request Specialty Service Requested 02/14/2024 02/13/2025 1 1 Reason for Visit * Consultation (Routine) - Authorized Specialty Diagnoses / Procedures Referred By Contac t Referred To Contact Cardiology Diagnoses Aneurysm of ascending aorta without rupture Congenital insufficiency of aortic valve Aneurysm of ascending aorta without rupture Clarita Ryder, LOUIE [address] [place] [address] [facility] [address] [place] [phone] Referral ID Status Reason Start Date Expiration Date Visits Requested Visits Authorized [id number] Authorized Consult, Test & Treat PCP Updated and/or Approved 11/18/2023 11/17/2024 6 6 Encounter Details Date Type Department Care Team (Late st Contact Info) Description 02/14/2024 9:00 AM EDT Office Visit Cardiology at [address] [place] [address] Mar Montelongo MD [facility] [address] [place] [address] Bicuspid aortic valve; Ascending aorta dilation; Essential hypertension Social History Tobacco Use Types Packs/Day Years Used Date Smoking Tobacco: Never Smokeless Tobacco: Former Chew Tobacco Cessation:Counseling Given: Not Answered Sex and Gender Information Value Date Recorded Sex Assigned at Not on file Gender Identity Not on file Sexual Orientation Not on file documented as of this encounter Last Filed Vital Signs Vital Sign Reading Time Taken Comments Blood Pressure 126/86 02/14/2024 8:53 AM EDT Pulse 88 02/14/2024 8:53 AM EDT Temperature - - Respiratory Rate - - Oxygen Saturation 96% 02/14/2024 8:53 AM EDT Inhaled Oxygen Concentration - - Weight 145.2 kg (320 lb 3.2 oz) 02/14/2024 8:53 AM EDT Height 177.8 cm (5' 10) 02/14/2024 8:53 AM EDT Body Mass Index 45.94 02/14/2024 8:53 AM EDT documented in this encounter Patient Instructions * Patient Instructions* Mar Montelongo MD - 02/14/2024 9:00 AM EDT STOP hydrochlorothiazide START losartan 25mg daily INCREASE metoprolol succinate to 100mg daily Check labs in about 1-2 weeks Come back and see me in about 6 months coordinated with an echocardiogram documented in this encounter Progress Notes * Mar Montelongo MD - 02/14/2024 9:00 AM EDT Images from the original note were not included. Formerly [facility] [place] [address] CARDIOLOGY OUTPATIENT NOTE PRIMARY CARE PROVIDER: Clarita Ryder APRN REFERRING PROVIDER: Clarita Ryder PROBLEM LIST: Patient Active Problem List Diagnosis Congenital insufficiency of aortic valve Morbid obesity Male erectile disorder Hypothyroidism Family history of malignant neoplasm of prostate Benign essential HTN MEDICATIONS: Current Outpatient Medications Medication Sig Dispense Refill metoprolol succinate XL (Toprol-XL) 25 mg ER 24 hr tablet Take 2 tablets by mouth Daily at Noon. hydroCHLOROthiazide 12.5 mg tablet Take 1 tablet by mouth Daily at Noon. cholecalciferol, Vitamin D3, 50 mcg (2,000 unit) Capsule Take by mouth. levothyroxine (SYNTHROID) 50 mcg Tablet Take 1 tablet by mouth daily. 90 tablet 0 sildenafil (VIAGRA) 50 mg Tablet Take 1 tablet by mouth as needed for Erectile Dysfunction. Prior to intercourse 10 tablet 1 No current facility-administered medications for this visit. Subjective: Patient ID: Saturnino Golden is a 53 y.o. male with a cardiovascular history of essential hypertension and bicuspid aortic valve with associated aortopathy. Medical history is otherwise notable for class III obesity (BMI 46), hypothyroidism and erectile dysfunction. He presents today referred by his primary BIODIESEL PRODUCTION ASSOCIATE Clarita Ryder for his dilated ascending aorta, having previously been followed for this issue by [facility]. HPI Patiently previously followed in [facility] system including by Cardiac Surgery with serial TTEs/MRAs/CTs since 2018, most recent TTE in Feb [address] Aorta July 2023 as below. Patient reports today that he is overall felling well. He has no chest pain, shortness of breath, palpitations, presyncope/syncope, edema. He will get winded if he has to climb up a steep hill for his work but this is longstanding and unchanged- he attributes to his weight. He recently moved to [place] and had initially continued with [facility] however with recent access issues he is transitioning care. Heshares good understanding of his underlying diagnosis and we reviewed the likely natural trajectoryand future treatment. He prefers to limit radiation exposure as able although notes that he will follow recommendations offered. Kidney function an electrolytes normal on recent check through primary in November 2023 (Cr 0.9, Na 141, K 4.0). Recent lipids done November 2023 show Total 171 / HDL 51 / LDL 103 / Trigs 86 Review of Systems As per HPI Family history: Father- prostate cancer Mother- Alzheimers, murmur not evaluated Siblings- brother and sister not known to have BAV, although notes sister does not believe in doctors and may not have ever gotten formally evaluated Social history: Family/Home - . No kids. Living a somewhat minimalist lifestyle per his preference to try to downsize. Great enjoyment of music. 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 Great sense of humor and wonderful conversationalist Systolic and diastolic murmur No results found for this or any previous visit (from the past 72 hour(s)). Lipid Panel Lab Results Component Value Date CHLPL 164 11/15/2014 HDL 58 11/15/2014 CHOLHDL 2.8 11/15/2014 TRIG 61 11/15/2014 LDLCHOL 94 11/15/2014 Recent lipids done November 2023 show Total 171 / HDL 51 / LDL 103 / Trigs 86 ECG (02/14/24): personally reviewed and interpreted NSR 86 bpm CA 214ms RBBB/LAFB 128ms TTE ([facility] scanned report 02/25/19): Normal LV systolic function LVEF 55-60% Bicuspid AoV with 1+AI, fusion of coronary cusps AoR 4.4cm / AoA 4.9cm / Arch 3.7cm /Descending 2.6cm Diastolic function qualitatively reported as normal, however I note the E:A was 0.6 and the e' velocities were significantly reduced both on the medial and lateral wall TTE ([facility] [place] report 02/18/23): Normal LV systolic function LVEF 60-65% Bicuspid AoV with mild /1-2+AI, fusion of coronary cusps AoR 4.8cm /AoA 5.0cm / Arch 3.7cm Diastology and LV size not assessed CT Angiogram Aorta (07/26/23): Assessment and Plan: # Bicuspid Aortic Valve, mild mixed stenosis and regurgitation # Bicuspid Aortopathy, dilated ascending up to 5.0cm Assessment - longstanding diagnosis undergoing serial monitoring. We discussed in detail the natural trajectory and the high likelihood of needing surgery. The best strategy to delay is to keep bloodpressure and heart rate under good control. His lipid profile is actually excellent and with no report of atherosclerosis on his imaging so I do not feel strongly about a statin at this juncture. - Anti-impulse control (BP <120/80, HR goal 60-70) - Stop HCTZ and start losartan 25mg, uptitrate prn - Increase metoprolol succinate from 50mg to 100mg - Can consider in future transition to carvedilol if more BP control is needed - TTE next non-urgent available given his last was about a year ago. 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 Thank you for the opportunity to participate in this patient's cardiovascular care. All questions were answered and I look forward to the next visit. Mar Montelongo MD Cardiovascular Medicine [facility] 02/14/2024 documented in this encounter Plan of Treatment Scheduled Orders Name Type Priority Associated Diagnoses Orde r Schedule Echocardiogram Transthoracic Echocardiography Routine Bicuspid aortic valve Ascending aorta dilation Expected: 02/14/2024, Expires: 08/15/2024 Basic Metabolic Panel Non-fasting Lab Routine Ascending aorta dilation Essential hypertension Expected: 02/14/2024, Expires: 08/15/2024 documented as of this encounter Procedures Procedure Name Priority Date/Time Associated Diagnosis Comments EKG 12-LEAD Routine 02/14/2024 9:06 AM EDT Bicuspid aortic valve Ascending aorta dilation documented in this encounter Results * Basic Metabolic Panel Non-fasting (02/27/2024 1:16 PM EDT) Glucose 97 65 - 199 mg/dL 02/27/2024 2:18 PM EDT [facility] Comment:Glucose Concentratio n >=200 mg/dL plus symptoms is consistent with Diabetes Mellitus. Blood Urea Nitrogen 14 10 - 20 mg/dL 02/27/2024 2:18 PM EDT [facility] Creatinine 0.86 0.80 - 1.50 mg/dL 02/27/2024 2:18 PM EDT [facility] Sodium 139 135 - 145 mMol/L 02/27/2024 2:18 PM EDT [facility] Potassium 4.3 3.5 - 5.0 mMol/L 02/27/2024 2:18 PM EDT [facility] Chloride 104 98 - 107 mMol/L 02/27/2024 2:18 PM EDT [facility] Carbon Dioxide 25 22 - 31 mMol/L 02/27/2024 2:18 PM EDT [facility] Anion Gap 10 5 - 15 mMol/L 02/27/2024 2:18 PM EDT [facility] Calcium 9.7 8.5 - 10.5 mg/dL 02/27/2024 2:18 PM EDT [facility] Est Glomerular Filtration Rate - Male 102 mL/min/1. 73 m?? 02/27/2024 2:18 PM EDT [facility] Comment: This patient's estimated GFR was calculated using the 2020 CKD-EPI equation. The estimated GFR can vary from the measured GFR by up to 30% in the absence of rapidly changing kidney function. Assessment of the estimated GFR is not appropriate when creatinine concentrations are rapidly changing. For clinical situations in which a more precise estimate of GFR is necessary, consider alternative methods of GFR estimation such as a 24-hour urine creatinine clearance. Assignment of CKD stage 1 - 5 for patients with an eGFR near the transition point between stages may be based on clinical assessment of muscle mass and symptoms in addition to eGFR. Link: eGFR Calculator [employer] Fasting Status No 02/27/2024 2:18 PM EDT [facility] Blood VENOUS BLOOD SPECIMEN / Unknown Venipuncture / Unknown 02/27/2024 1:16 PM EDT 02/27/2024 1:16 PM EDT Mar Montelongo MD CHEMISTRY ORDERABLES Performing Organization Address City/[facility] [employer] de Phone Number [facility] [place] [address] * EKG 12 Lead (02/14/2024 9:06 AM EDT) Ventricular rate 86 BPM MUSE SYSTEM Atrial Rate 86 BPM MUSE SYSTEM P-R Interval 214 ms MUSE SYSTEM QRS Duration 128 ms MUSE SYSTEM Q-T Interval 380 ms MUSE SYSTEM QTC Calculated (Bezet) 454 ms MUSE SYSTEM Calculated P [place] 32 degrees MUSE SYSTEM Calculated R [place] -67 degrees MUSE SYSTEM Calculated T [place] 28 degrees MUSE SYSTEM INTERPRETATION Sinus rhythm with 1st degree A-V block Right bundle branch block Left anterior fascicular block Bifascicular block Septal infarct , age undetermined Abnormal ECG No previous ECGs available Confirmed by MD Boubacar, Kadeem Hutson ([id number]) on 02/14/2024 12:03:37 PM MUSE SYSTEM 02/14/2024 9:06 AM EDT 02/14/2024 12:03 PM EDT Mar Montelongo MD ECG ORDERABLES Performing Organization Address City/[facility] [employer] de Phone Number MUSE SYSTEM documented in this encounter Visit Diagnoses Diagnosis Bicuspid aortic valve Congenital insufficiency of aortic valve Ascending aorta dilation Thoracic aortic ectasia Essential hypertension Unspecified essential hypertension documented in this encounter Care Teams Clinical Pharmacist Relationship Specialty Start Date End Date Clarita Ryder, BIODIESEL PRODUCTION ASSOCIATE [address] [place] [address] PCP - General Family Medicine 12/19/23 documented as of this encounter
--- OUTSIDE RECORDS SUMMARY | 2024-06-26 16:14 | XMS_ITS | Encounter Summary ---
Author Organization [facility] [place] [address] Care Team Providers Care Linen Room Supervisor Name Role Phone Clarita Ryder LOUIE Primary Care Provider [phone] Encounter Details Date Type Department Care Team (Latest Contact Info) Description 02/27/2024 2:55 PM EDT Laboratory Appointment Lab [address] [place] [id number] Essential hypertension Social History Tobacco Use Types [...] Procedure Name Priority Date/Time Associated Diagnosis Comments BASIC METABOLIC PANEL Routine 02/27/2024 1:16 PM EDT Essential hypertension documented in this encounter Results * Basic Metabolic Panel Non-fasting (02/27/2024 1:16 PM EDT) Pathologist [facility] Glucose 97 65 - 199 mg/dL 02/27/2024 2:[address] [facility] Comment:Glucose Concentratio n >=200 mg/dL plus symptoms is consistent with Diabetes Mellitus. Blood Urea Nitrogen 14 10 - 20 mg/dL 02/27/2024 2:[address] [facility] Creatinine 0.86 0.80 - 1.50 mg/dL 02/27/2024 2:[address] [facility] Sodium 139 135 - 145 mMol/L 02/27/2024 2:[address] [facility] Potassium 4.3 3.5 - 5.0 mMol/L 02/27/2024 2:[address] [facility] Chloride 104 98 - 107 mMol/L 02/27/2024 2:[address] [facility] Carbon Dioxide 25 22 - 31 mMol/L 02/27/2024 2:[address] [facility] Anion Gap 10 5 - 15 mMol/L 02/27/2024 2:[address] [facility] Calcium 9.7 8.5 - 10.5 mg/dL 02/27/2024 2:[address] [facility] Est Glomerular Filtration Rate - Male 102 mL/min/1. 73 m?? 02/27/2024 2:[address] [facility] Comment: This patient's estimated GFR [...] Fasting Status No 02/27/2024 2:[address] [facility] Blood VENOUS BLOOD SPECIMEN / Unknown Venipuncture / Unknown 02/27/2024 1:16 PM EDT 02/27/2024 1:16 PM EDT Mar Montelongo MD CHEMISTRY ORDERABLES [facility] [place] [address] documented in this encounter Visit Diagnoses Diagnosis Essential hypertension Unspecified essential hypertension documented in this encounter Care Teams Linen Room Supervisor Relationship Specialty Start Date End Date Clarita Ryder APRN [address] [place] [address] PCP - General Family Medicine 12/19/23 documented as of this encounter
--- OUTSIDE RECORDS SUMMARY | 2024-06-26 16:14 | XMS_ITS | Encounter Summary ---
Author Organization [facility] [place] [address] Care Team Providers Care Squeegeer And Former Name Role Phone Clarita Ryder APRN Primary Care Provider [phone] Encounter Details Date Type Department Care Team (Latest Contact Info) Description 02/13/2024 Travel Social History Tobacco Use Types Packs/Day Years Used Date Smoking Tobacco: Never Assessed Sex and Gender Information Value Date Recorded Sex Assigned at Not on file Gender Identity Not on file Sexual Orientation Not on file documented as of this encounter Plan of Treatment Not on file documented as of this encounter Visit Diagnoses Not on filedocumented in this encounter Care Teams Squeegeer And Former Relationship Specialty Start Date End Date Clarita Ryder APRN [address] [place] [address] PCP - General Family Medicine 12/19/23 documented as of this encounter
--- OUTSIDE RECORDS SUMMARY | 2024-06-26 16:14 | XMS_ITS | Encounter Summary ---
Author Organization [facility] [place] [address] Care Team Providers Care Environmental Compliance Officer Name Role Phone Geovanna Mendoza MD Primary Care Provider [phone]- [phone] Reason for Visit * Reason Onset Date Comments Medication Refill 03/02/2015 Encounter Details Date Type Department Care Team (Late st Contact Info) Description 03/02/2015 Refill Primary Care at [address] [address] Geovanna Mendoza MD [address] [place] [address] Acquired hypothyroidism Social History Tobacco Use Types [...] hypothyroidism documented in this encounter Care Teams Environmental Compliance Officer Relationship Specialty Start Date End Date Geovanna Mendoza MD [address] [place] [address] PCP - General 10/23/13 01/10/17 documented as of this encounter
--- OUTSIDE RECORDS SUMMARY | 2024-06-26 16:14 | XMS_ITS | Referral Summary ---
Author Organization [facility] Address [address] [place] [address] Care Team Providers Care Pencils Washer Name Role Phone Unavailable Primary Care Provider Unavailabl e Social History Tobacco Use Types Packs/Day Years Used Date Smoking Tobacco: Never Assessed Sex and Gender Information Value Date Recorded Sex Assigned at Not on file Legal Sex Male 12:35 EDT Gender Identity Not on file Sexual Orientation Not on file Plan of Treatment Not on file
--- OUTSIDE RECORDS SUMMARY | 2024-06-26 16:14 | XMS_ITS | Encounter Summary ---
Author Organization [facility] [place] [address] Care Team Providers Care Oracle Soa Architect Name Role Phone Geovanna Mendoza MD Primary Care Provider [phone] Encounter Details Date Type Department Care Team (Latest Contact Info) Description 11/15/2014 8:00 AM EDT Laboratory Appointment Lab at [address] [address] Geovanna Mendoza MD [address] [place] [address] Discharge Disposition: Home Social History Tobacco Use [...] 11/15/2014 10:53 AM EDT COMPREHENSIVE METABOLIC PANEL Routine 11/15/2014 10:53 AM EDT documented in this encounter Results * VIT D Total Evaluation (11/15/2014 10:53 AM EDT) Vitamin D Total 25 OH 36 30 - 100 ng/mL [facility] Comment: Deficient <10 ng/mL Insufficient 10 to 29 ng/mL Sufficient 30 to 100 ng/mL Potential Intoxication >100 ng/mL According to the US National Osteoporosis Foundation, Vitamin D concentrations >30 ng/mL are sufficient to protect bone health. ??The National Kidney Foundation has similarly stated that patients with Vitamin D concentrations <30ng/mL should be considered to be insufficient or deficient. http://[employer]/Patron Technologynatlkidneyfoundation http://[employer]/DHPatron TechnologyVitD [employer] Vitamin D Immunoassay detects both 25-OH Vitamin D2 and 25-OH Vitamin D3, but only a total Vitamin D concentration is reported. Blood specimen (specimen) Venous Draw / Unknown 11/15/2014 10:53 AM EDT 11/15/2014 7:02 PM EDT Narrative Resulting Agency Comment Spec In Lab Geovanna Mendoza MD CHEMISTRY ORDERABL ES Performing Organization Address [facility] Co de Phone Number [facility] * (ABNORMAL) TSH (11/15/2014 10:53 AM EDT) Pathologist [facility] Thyroid Stimulating Hormone 5.98(H) 0.27 - 4.20 mcIU/mL [facility] Blood specimen (specimen) Venous Draw / Unknown 11/15/2014 10:53 AM EDT 11/15/2014 7:00 PM EDT Narrative Resulting Agency Comment Spec In Lab Geovanna Mendoza MD CHEMISTRY ORDERABL ES Performing Organization Address [facility] Co de Phone Number [facility] * PSA Screen (11/15/2014 10:53 AM EDT) Pathologist [facility] PSA Screen 0.90 0.00 - 4.00 ng/mL [facility] Blood specimen (specimen) Venous Draw / Unknown 11/15/2014 10:53 AM EDT 11/15/2014 7:00 PM EDT Narrative Resulting Agency Comment Spec In Lab Geovanna Mendoza MD CHEMISTRY ORDERABL ES [facility] * Lipid panel (fasting) (11/15/2014 10:53 AM EDT) Cholesterol, Total 164 <=199 mg/dL [facility] Comment: Recommendations of the NCEP Adult Treatment Panel for the following risk cutoff thresholds for the [place] population: Desirable: <200 mg/dL Borderline High: 200-239 mg/dL High: > or = 240 mg/dL Triglyceride 61 <=149 mg/dL [facility] Comment: Reference Range: Normal triglycerides: ??<150 mg/dL Borderline high: ??150-199 mg/dL High: ??200-499 mg/dL Very high: ??>ta=631 mg/dL JAVED 2001; 285(19):1076-2921 HDL Cholesterol 58 >=40 mg/dL [facility] Comment: Reference range: ??Low HDL: ?? < 40 mg/dL ??Normal: ?40-60 mg/dL ??Desirable: > 60 mg/dL JAVED 2001; 285(19):1034-0438 LDL Cholesterol 94 <=99 mg/dL [facility] Comment: Reference range: ?? Optimal: ?<100 mg/dL ?? Near Optimal/Above Optimal: ?? 100-129 mg/dL ?? Borderline high: ?130-159 mg/dL ?? High: ? 160-189 mg/dL ?? Very high: ?>jc=994 mg/dL JAVED 2001: 285(19):5038-6911 Cholesterol/HDL Ratio 2.8 ratio [facility] Comment: A Cholesterol to HDL ratio below 4:1 is desirable. ??Studies suggest that increased CAD risk occurs at ratios above 5 for females and above 6 for men. ? [place] Heart Association ??(http://www.americanheart.org) ? Jenny Int Med, 1994; 121:641 ? AM J Med, 1998; 105(1A):48S Blood specimen (specimen) Venous Draw / Unknown 11/15/2014 10:53 AM EDT 11/15/2014 7:00 PM EDT Narrative Resulting Agency Comment Spec In Lab Geovanna Mendoza MD CHEMISTRY ORDERABL ES [facility] * (ABNORMAL) Comprehensive metabolic panel (non-fasting) (11/15/2014 10:53 AM EDT) [facility] Glucose 90 65 - 199 mg/dL [facility] Comment:Diabetes: >=200 mg/d L plus symptoms Blood Urea Nitrogen 12 10 - 20 mg/dL [facility] Creatinine 0.93 0.80 - 1.50 mg/dL [facility] Comment: Please note that the pediatric reference intervals supplied above were not validated at [facility] [place] [place]. Results from pediatric patients should be interpreted [...] 104 98 - 107 mmol/L [facility] Carbon Dioxide 22 22 - 31 mmol/L [facility] Anion Gap 16(H) 5 - 15 mmol/L [facility] Calcium 9.6 8.5 - 10.5 mg/dL [facility] Protein, Total 7.5 6.1 - 8.0 gm/dL [facility] Albumin 4.3 3.2 - 5.2 gm/dL [facility] Aspartate Aminotransferase 22 0 - 39 unit/L [facility] Alanine Aminotransferase 30 0 - 55 unit/L [facility] Alkaline Phosphatase 65 40 - 120 unit/L [facility] Bilirubin, Total 0.4 0.2 - 1.3 mg/dL [facility] Bilirubin, Direct 0.1 0.0 - 0.3 mg/dL [facility] Est Glomerular Filtration Rate >60 >=60 [facility] Comment: This estimated [...] the following links into your internet browser. [email or web address]/DHnkdep [email or web address]/DHMCnkf Blood specimen (specimen) Venous Draw / Unknown 11/15/2014 10:53 AM EDT 11/15/2014 7:00 PM EDT Narrative Resulting Agency Comment Spec In Lab Geovanna Mendoza MD CHEMISTRY ORDERABL ES [facility] * Differential, Automated (11/15/2014 10:53 AM EDT) Neutrophil % 53.8 % [facility] Neutrophil Absolute 3.50 1.50 - 6.30 x10(3)/mcL [facility] Lymph % 33.2 % [facility] Lymphocytes Abs 2.2 1.0 - 3.6 x10(3)/mcL [facility] Monocyte % 9.2 % [facility] Monocyte Abs 0.6 0.2 - 1.0 x10(3)/mcL [facility] Eos % 2.5 % [facility] Eosinophils Abs 0.2 0.0 - 0.5 x10(3)/mcL [facility] Basophil % 0.8 % [facility] Baso Absolute 0.0 0.0 - 0.2 x10(3)/mcL [facility] Immature Gran % 0.50 % [facility] Comment: Immature granulocytes(IG's)percentage and absolute count will include metamyelocytes, myelocytes, and promyelocytes. Blood smears from CBCs yielding IG's will be scanned manually for concordance. If this scan disagrees with the automated IG or if promyelocytes are noted, a manual differential will be performed. Immature Gran Absolute 0.03 0.00 - 0.05 x10(3)/mcL [facility] Blood specimen (specimen) Venous Draw / Unknown 11/15/2014 10:53 AM EDT 11/15/2014 1:11 PM EDT Narrative Resulting Agency Comment Spec In Lab Geovanna Mendoza MD HEMATOLOGY ORDERAB LES [facility] * (ABNORMAL) Hemogram (11/15/2014 10:53 AM EDT) White Blood Cell 6.5 4.0 - 10.0 x10(3)/mc L [facility] Red Blood Cell 5.15 4.63 - 6.08 x10(6)/mc L [facility] Hemoglobin 16.3 13.7 - 17.5 gm/dL [facility] Hematocrit 46.1 40.0 - 51.0 % [facility] Mean Cell Volume 89.5 79.0 - 92.0 fL [facility] Mean Cell Hemoglobin 31.7 25.6 - 32.2 pg [facility] Mean Cell Hemoglobin Concentration 35.4 32.0 - 36.5 gm/dL [facility] Platelet 175 145 - 370 x10(3)/mc L [facility] RDW Standard Deviation 43.2 35.0 - 46.0 fL [facility] RDW coefficient of variation 13.3 10.9 - 14.4 % [facility] Mean Platelet Volume 12.3(H) 9.0 - 12.0 fL [facility] Blood specimen (specimen) Venous Draw / Unknown 11/15/2014 10:53 AM EDT 11/15/2014 1:11 PM EDT Narrative Resulting Agency Comment Spec In Lab Geovanna Mendoza MD HEMATOLOGY ORDERAB LES Performing Organization Address City/State/[facility] Co de Phone Number [facility] documented in this encounter Visit Diagnoses Not on filedocumented in this encounter Care Teams Oracle Soa Architect Relationship Specialty Start Date End Date Geovanna Mendoza MD [address] [place], [place] [id number] PCP - General 10/23/13 01/10/17 documented as of this encounter
--- OUTSIDE RECORDS SUMMARY | 2024-06-26 16:14 | XMS_ITS | Encounter Summary ---
Author Organization [facility] [place] [address] Care Team Providers Care Argon Tester Name Role Phone Mai Nice MD Primary Care Provider +1- [phone] Encounter Details Date Type Department Care Team ([facility] st Contact Info) Description 04/24/2013 9:00 AM EST Office Visit [facility] [address] [place] [address] Mai Nice MD [address] [place] [address] Social History Tobacco Use Types Packs/Day Years Used Date Smoking Tobacco: Never Assessed Sex and Gender Information Value Date Recorded Sex Assigned at Not on file Gender Identity Not on file Sexual Orientation Not on file documented as of this encounter Plan of Treatment Not on file documented as of this encounter Visit Diagnoses Not on filedocumented in this encounter Care Teams Argon Tester Relationship Specialty Start Date End Date Mai Nice MD [address] [place] [address] PCP - General 04/11/10 10/22/13 documented as of this encounter
--- OUTSIDE RECORDS SUMMARY | 2024-06-26 16:14 | XMS_ITS | Encounter Summary ---
Author Organization [facility] [place] [address] Care Team Providers Care Diesel Engine I Pipe Fitter Name Role Phone Geovanna Mendoza MD Primary Care Provider +1- [phone] Encounter Details Date Type Department Care Team ([facility] st Contact Info) Description 11/08/2014 3:30 PM EDT Office Visit Primary Care at [address] [address] Geovanna Mendoza MD [address] [place] [address] Social History Tobacco Use Types Packs/Day Years Used Date Smoking Tobacco: Never Assessed Sex and Gender Information Value Date Recorded Sex Assigned at Not on file Gender Identity Not on file Sexual Orientation Not on file documented as of this encounter Plan of Treatment Not on file documented as of this encounter Visit Diagnoses Not on filedocumented in this encounter Care Teams Diesel Engine I Pipe Fitter Relationship Specialty Start Date End Date Geovanna Mendoza MD [address] [place] [address] PCP - General 10/23/13 01/10/17 documented as of this encounter
--- OUTSIDE RECORDS SUMMARY | 2024-06-26 16:14 | XMS_ITS | Clinical Summary ---
Author Organization [facility] Address [facility] [place] [address] Care Team Providers Care Rn Er Name Role Phone Clarita Ryder Norma PAL[place] Primary Care Provider [phone] Allergies No known active allergies Medications Medication Sig Dispensed Refills Start Date End Date Status levothyroxine (SYNTHROID) 50 mcg TabletIndications:Acqui red hypothyroidism Take 1 tablet by mouth daily. 90 tablet 0 05/25/2015 Active cholecalciferol, Vitamin D3, 50 mcg (2,000 unit) Capsule Take by mouth. Active losartan (Cozaar) 25 mg tabletIndications:Ascen ding aorta dilation,Essential hypertension Take 1 tablet by mouth daily. 90 tablet 3 02/14/2024 Active metoprolol succinate XL (Toprol-XL) 100 mg ER 24 hr tabletIndications:Ascen ding aorta dilation,Essential hypertension Take 1 tablet by mouth Daily at Noon. 90 tablet 3 02/14/2024 Active Active Problems Problem Noted Date Diagnosed Date Congenital insufficiency of aortic valve 015 Morbid obesity 02/18/2015 Male erectile disorder 10/23/2013 Hypothyroidism 08/28/2012 Family history of malignant neoplasm of prostate 09/22/2007 Benign essential HTN 03/19/2007 Immunizations Name Administration Dates Next Due Influenza [...] Mass Index 45.94 02/14/2024 8:53 AM EDT Plan of Treatment Health Maintenance Due Date Last Done Comments CT Colonography 1968 Colonoscopy 1968 Colorectal Cancer Screening 1968 FIT DNA 1968 FIT 1968 Sigmoidoscopy (10 year) with FIT yearly 1968 Sigmoidoscopy 1968 HIV screen 1986 Hepatitis C Screening 1986 Hepatitis B vaccine (0-59 yrs) (1) 1987 Tetanus/Diphtheria/Pertussis Vaccines (1 - Tdap) 03/11/2007 03/10/2007 Pneumoccocal Vaccine: 50+ (1 of 1 - PCV) 2018 Zoster vaccine (1 of 2) 2018 Lipid Screening 11/16/2019 11/15/2014 Advance Directive 2023 Covid-19 Vaccine (1 - season) 2024 Influenza (Flu) vaccine (1 o f 1 - Influenza standard series) 01/19/2024 03/10/2007 Diabetes Screening (HgbA1C o r Glucose) 02/26/2027 02/27/2024, 11/15/2014, 08/28/2012 Procedures Procedure Name Priority Date/Time Associated Diagnosis Comments BASIC METABOLIC PANEL Routine 02/27/2024 1:16 PM EDT Essential hypertension LIPID PANEL (REFLEX DIRECT LDL) Routine 11/15/2014 10:53 AM EDT from Last 3 Months or Most Recently Relevant to Health Maintenance Results * Basic Metabolic Panel Non-fasting (02/27/2024 1:16 PM EDT) [facility] Glucose 97 65 - 199 mg/dL 02/27/2024 2:18 PM [facility] Comment:Glucose Concentratio n >=200 mg/dL plus symptoms is consistent with Diabetes Mellitus. Blood Urea Nitrogen 14 10 - 20 mg/dL 02/27/2024 2:18 PM [facility] Creatinine 0.86 0.80 - 1.50 mg/dL 02/27/2024 2:18 PM [facility] Sodium 139 135 - 145 mMol/L 02/27/2024 2:18 PM [facility] Potassium 4.3 3.5 - 5.0 mMol/L 02/27/2024 2:18 PM [facility] Chloride 104 98 - 107 mMol/L 02/27/2024 2:18 PM [facility] Carbon Dioxide 25 22 - 31 mMol/L 02/27/2024 2:18 PM [facility] Anion Gap 10 5 - 15 mMol/L 02/27/2024 2:18 PM [facility] Calcium 9.7 8.5 - 10.5 mg/dL 02/27/2024 2:18 PM [facility] Est Glomerular Filtration Rate - Male 102 mL/min/1. 73 m?? 02/27/2024 2:18 PM [facility] Comment: This patient's estimated GFR was [...] Foundation Fasting Status No 02/27/2024 2:18 PM [facility] Blood VENOUS BLOOD SPECIMEN / Unknown Venipuncture / Unknown 02/27/2024 1:16 PM EDT 02/27/2024 1:16 PM EDT Mar Montelongo MD CHEMISTRY ORDERABLES [facility] [place] [address] * Lipid panel (fasting) (11/15/2014 10:53 AM EDT) Cholesterol, Total 164 <=199 mg/dL [facility] Comment: Recommendations of the NCEP Adult Treatment Panel for the following risk cutoff thresholds for the [place] population: Desirable: <200 mg/dL Borderline High: 200-239 mg/dL High: > or = 240 mg/dL Triglyceride 61 <=149 mg/dL [facility] Comment: Reference Range: Normal triglycerides: ??<150 mg/dL Borderline high: ??150-199 mg/dL High: ??200-499 mg/dL Very high: ??>ke=973 mg/dL JAVED 2001; 285(19):5729-3539 HDL Cholesterol 58 >=40 mg/dL [facility] Comment: Reference range: ??Low HDL: ?? < 40 mg/dL ??Normal: ?40-60 mg/dL ??Desirable: > 60 mg/dL JAVED 2001; 285(19):0690-4002 LDL Cholesterol 94 <=99 mg/dL [facility] Comment: Reference range: ?? Optimal: ?<100 mg/dL ?? Near Optimal/Above Optimal: ?? 100-129 mg/dL ?? Borderline high: ?130-159 mg/dL ?? High: ? 160-189 mg/dL ?? Very high: ?>dw=886 mg/dL JAVED 2001: 285(19):5601-2879 Cholesterol/HDL Ratio 2.8 ratio [facility] Comment: A Cholesterol to HDL ratio below 4:1 is desirable. ??Studies suggest that increased CAD risk occurs at ratios above 5 for females and above 6 for men. ? [place] Heart Association ??(http://www.americanheart.org) ? Jenny Int Med, 1994; 121:641 ? AM J Med, 1998; 105(1A):48S Blood specimen (specimen) Venous Draw / Unknown 11/15/2014 10:53 AM EDT 11/15/2014 7:00 PM EDT Narrative Resulting Agency Comment Spec In Lab Geovanna Mendoza MD CHEMISTRY ORDERABL ES [facility] from Last 3 Months or Most Recently Relevant to Health Maintenance Care Teams Rn Er Relationship Specialty Start Date End Date Clarita Ryder APRN [address] [place] [address] PCP - General Family Medicine 12/19/23
--- OUTSIDE RECORDS SUMMARY | 2024-06-26 16:14 | XMS_ITS | Clinical Summary ---
Author Organization [facility] Address [address] [place] [address] Care Team Providers Care Dermatology Physician Name Role Phone Unavailable Primary Care Provider Unavailabl e Social History Tobacco Use Types Packs/Day Years Used Date Smoking Tobacco: Never Assessed Sex and Gender Information Value Date Recorded Sex Assigned at Not on file Legal Sex Male 12:35 EDT Gender Identity Not on file Sexual Orientation Not on file Plan of Treatment Health Maintenance Due Date Last Done Comments Hepatitis C Screen 1968 Hepatitis B Vaccine (1 of 3 - 19+ 3-dose series) 07/17 COVID-19 Vaccine ( season) 2024
--- OUTSIDE RECORDS SUMMARY | 2024-06-26 16:14 | XMS_ITS | Encounter Summary ---
Author Organization [facility] [place] [address] Care Team Providers Care Hub Cutter Name Role Phone Geovanna Mendoza MD Primary Care Provider +1- [phone] Encounter Details Date Type Department Care Team (Late st Contact Info) Description 06/15/2015 Abstract [facility] [employer] [address] [place] [phone] Provider, His Rehan MD None Social History [...] on filedocumented in this encounter Care Teams Hub Cutter Relationship Specialty Start Date End Date Geovanna Mendoza MD [address] [place] [address] PCP - General 10/23/13 01/10/17 documented as of this encounter
--- OUTSIDE RECORDS SUMMARY | 2024-06-26 16:14 | XMS_ITS | Encounter Summary ---
Author Organization [facility] [place] [address] Care Team Providers Care Veneer Press Operator Name Role Phone Geovanna Mendoza MD Primary Care Provider +1- [phone] Reason for Visit * Reason Comments Other Encounter Details Date Type Department Care Team ([facility] Contact Info) Description 05/25/2015 Refill Primary Care at [address] [address] Geovanna Mendoza MD [address] [place] [address] Acquired hypothyroidism Social History Tobacco Use Types [...] SYNTHROID 50 mcg Tablet Name of pharmacy: [facility] [address] TO REGISTERED [facility] Name of caller: Francesca Phone and Fax number: Message: reference number - [id number], they are just making sure that this was suppose to be sent over twice, also if it was the 50 mcg they just want the permission to supply 90 days instead of 30 documented in this encounter Plan of Treatment Not on file documented as of this encounter Visit Diagnoses Diagnosis Acquired hypothyroidism Unspecified hypothyroidism documented in this encounter Care Teams Veneer Press Operator Relationship Specialty Start Date End Date Geovanna Mendoza MD [address] [place] [address] PCP - General 10/23/13 01/10/17 documented as of this encounter
--- OUTSIDE RECORDS SUMMARY | 2024-06-26 16:14 | XMS_ITS | Encounter Summary ---
Author Organization [facility] [place] [address] Care Team Providers Care Chief Crna Name Role Phone Geovanna Mendoza MD Primary Care Provider +1- [phone] Reason for Visit * Reason Comments Medication Refill Encounter Details Date Type Department Care Team ([facility] st Contact Info) Description 05/18/2015 Refill Primary Care at [address] [address] Geovanna Mendoza MD [address] [place] [address] Social History Tobacco Use Types Packs/Day Years [...] on filedocumented in this encounter Care Teams Chief Crna Relationship Specialty Start Date End Date Geovanna Mendoza MD [address] [place] [address] PCP - General 10/23/13 01/10/17 documented as of this encounter
--- OUTSIDE RECORDS SUMMARY | 2024-06-26 16:14 | XMS_ITS | Encounter Summary ---
Author Organization [facility] [place] [address] Care Team Providers Care Air Conditioning Unit Tester Name Role Phone Geovanna Mendoza MD Primary Care Provider +1- [phone] Encounter Details Date Type Department Care Team (Late st Contact Info) Description 10/25/2014 Abstract [facility] [employer] [address] [place] [address] Provider, His Rehan MD None Social History [...] encounter Results * (ABNORMAL) External Labs for Max Associate Vice President use only (08/28/2012) Hemoglobin A1c 5.6(Registered Nurse Cardiac al Lab) His Rehan Provider POINT OF CARE TE ST ORDERABLES documented in this encounter Visit Diagnoses Not on filedocumented in this encounter Care Teams Air Conditioning Unit Tester Relationship Specialty Start Date End Date Geovanna Mendoza MD [address] [place] [address] PCP - General 10/23/13 01/10/17 documented as of this encounter
--- OUTSIDE RECORDS SUMMARY | 2024-06-26 16:14 | XMS_ITS | Encounter Summary ---
Author Organization [place] [address] Care Team Providers Care Director Clinical Operations Name Role Phone Mai Nice MD Primary Care Provider [phone]- [phone] Encounter Details Date Type Department Care Team ([facility] st Contact Info) Description 06/27/2011 4:00 PM EST Office Visit [facility] [address] [place] [phone] Mai Nice MD [address] [place] [id number] Social History Tobacco Use Types Packs/Day Years Used Date Smoking Tobacco: Never Assessed Sex and Gender Information Value Date Recorded Sex Assigned at Not on file Gender Identity Not on file Sexual Orientation Not on file documented as of this encounter Plan of Treatment Not on file documented as of this encounter Visit Diagnoses Not on filedocumented in this encounter Care Teams Director Clinical Operations Relationship Specialty Start Date End Date Mai Nice MD [address] [place] [id number] PCP - General 04/11/10 10/22/13 documented as of this encounter
--- OUTSIDE RECORDS SUMMARY | 2024-06-26 16:14 | XMS_ITS | Encounter Summary ---
Author Organization [facility] Address [address] [place] [address] Care Team Providers Care Spring Maker Name Role Phone Unavailable Primary Care Provider Unavailabl e Encounter Details Date Type Department Care Team (Late st Contact Info) Description 12/06/2023 Lab Requisition [facility] Pathology & Laboratory Medicine - [facility] [address] [place] [address] Outr Resulting Lab, Provider Social History Tobacco Use Types Packs/Day Years [...] Name Priority Date/Time Associated Diagnosis Comments PSA TOTAL, DIAGNOSTIC Routine 12/06/2023 8:00 EDT documented in this encounter Results * PSA TOTAL, DIAGNOSTIC (12/06/2023 8:00 EDT) PSA 1.4 <=3.5 ng/mL 12/06/2023 20:46 EDT [facility] Blood VENOUS BLOOD / Unknown 12/06/2023 8:00 EDT 12/06/2023 19:52 EDT Narrative [facility] - 12/06/2023 20:46 EDT NOTE: Serum PSA concentration should not be interpreted as absolute evidence for the presence or absence of malignant disease. Assayed on Siemens ADVIA Centaur XPT using chemiluminescent technology.??Values obtained by using different assay methods cannot be used interchangeably. us Provider Outr Resulting Lab CHEMISTRY & BLOOD GA S ORDERABLES Final Result [facility] [address] [place] [address] documented in this encounter Visit Diagnoses Not on filedocumented in this encounter
== END 2024-06-26 16:12 | disposition home or self-care (01) ==
LOC: LBO 16:12
PROVIDERS: PCP Nurse Practitioner Family; Visit Provider Nurse Practitioner Family
DX: I10 Essential (primary) hypertension (principal); E66.01 Morbid (severe) obesity due to excess calories; F50.9 Eating disorder, unspecified; Z68.42 Body mass index [BMI] 45.0-49.9, adult; M25.511 Pain in right shoulder; I71.40 Abdominal aortic aneurysm, without rupture, unspecified
CPT/HCPCS: 36415; 80048

== ENCOUNTER 2024-10-09 08:57 | Outpatient (CLI) | payer BC, SELFPAY ==
[2024-10-09 08:47] LABS: TSH (W/Ref FT4) 2.97 uIU/mL (0.36-3.74)
== END 2024-10-09 08:58 | disposition home or self-care (01) ==
LOC: LBO 08:58
PROVIDERS: PCP Nurse Practitioner Family; Visit Provider Nurse Practitioner Family
DX: E03.9 Hypothyroidism, unspecified (principal)
CPT/HCPCS: 36415; 84443

== ENCOUNTER 2024-11-06 01:11 | Outpatient (CLI) | payer BC, SELFPAY ==
[2024-11-06 07:51] LABS: Glucose 98 mg/dL (74-106)
[2024-11-06 07:57] LABS: Calculated LDL 101 mg/dL (<100); Cholesterol 170 mg/dL (<200); HDL Cholesterol 52 mg/dL (>or=40); Triglyceride 89 mg/dL (<150)
[2024-11-06 18:38] LABS: PSA, Screening 2.3 ng/mL (<=3.5)
== END 2024-11-06 01:12 | disposition home or self-care (01) ==
LOC: LBO 01:11
PROVIDERS: PCP Nurse Practitioner Family; Visit Provider Nurse Practitioner Family
DX: Z00.00 Encounter for general adult medical examination without abnormal findings (principal); Z87.898 Personal history of other specified conditions; Z80.42 Family history of malignant neoplasm of prostate
CPT/HCPCS: 36415; 80061; 82947; 84153

== ENCOUNTER 2025-04-23 02:13 | Outpatient (CLI) | payer BC, SELFPAY ==
[2025-04-23 09:56] LABS: Anion Gap 7.3 mmol/L (3-11); BUN 16 mg/dL (9-23); CO2 28.7 mmol/L (20.0-31.0); Calcium 9.1 mg/dL (8.3-10.6); Chloride 105 mmol/L (98-107); Cholesterol 168 mg/dL (<200); Glucose 93 mg/dL (74-106); HDL Cholesterol 54 mg/dL (>40); Hemoglobin A1C 4.9 % (<5.7); Potassium 4.1 mmol/L (3.5-5.1); Sodium 141 mmol/L (136-145)
[2025-04-23 19:29] LABS: PSA, Screening 1.7 ng/mL (<=3.5)
== END 2025-04-23 02:14 | disposition home or self-care (01) ==
LOC: LBO 02:13
PROVIDERS: PCP Nurse Practitioner Family; Referring Provider Nurse Practitioner Family; Visit Provider Nurse Practitioner Family
DX: I10 Essential (primary) hypertension (principal); Z00.00 Encounter for general adult medical examination without abnormal findings; Z80.42 Family history of malignant neoplasm of prostate
CPT/HCPCS: 36415; 80048; 80061; 84153; 83036

== ENCOUNTER → 2025-05-10 00:49 | Outpatient (CLI) | payer BC, SELFPAY ==
--- NOTE | 2025-05-10 07:00 | DI.MRI_ITS ---
Exam(s) MR BRAIN WO EXAM: MR BRAIN WO CLINICAL HISTORY: ? stroke,transient visual loss of both eyes,h53.123 TECHNIQUE: Multiplanar multisequence MRI of the brain was performed. COMPARISON: No exams were available for comparison FINDINGS: VENTRICLES AND EXTRA AXIAL SPACES: Normal in size and morphology for the patient's age. MIDLINE SHIFT: None. CEREBRAL PARENCHYMA: No focus of restricted diffusion to suggest acute infarct. No space-occupying lesion identified. HEMORRHAGE: None. BRAINSTEM/CEREBELLUM: Normal. CALVARIUM: Normal. VISUALIZED PARANASAL SINUSES/MASTOIDS:Clear. [place]ALEN OF FR[place]: Normal flow void. PITUITARY GLAND: Unremarkable. OTHER FINDINGS: None. IMPRESSION: There is no evidence of an acute infarct. DATA REPOSITORY:
== END ==
PROVIDERS: PCP Nurse Practitioner Family; Visit Provider Nurse Practitioner Family
DX: H53.123 Transient visual loss, bilateral (principal)
CPT/HCPCS: 70551